=== PATIENT | female | born 1945 | race Caucasian/White ===

== ENCOUNTER 2016-10-18 10:53 | Inpatient (IN) ==
[2016-10-18] MEDS ORDERED: 0.9 % SODIUM CHLORIDE 1,000 ML IV ONE (11:36)
[2016-10-18 12:07] LABS: Mean Cell Volume 88.2 fL (80.0-100.0); Mean Corpuscular HGB Conc 33.7 g/dL (31.0-36.0); Mean Corpuscular Hemoglobin 29.7 pg (26.0-34.0); Platelet Count 211 K/mcL (140-440); RBC 4.21 M/mcL (4.00-5.20); Red Cell Distribution Width 14.3 % (11.5-14.5)
--- NOTE | 2016-10-18 12:11 | Emergency Department Note ---
Female Urogenital HPI - General Chief complaint: Fever Stated complaint: fever, constipation Time Seen by Provider: 10/18/16 11:15 Source: other (senior care transport brings in note) Mode of arrival: wheelchair Limitations: altered mental status (dementia) - History of Present Illness HPI Narrative: 71-year-old female presents to the ED with a history of fever, weakness, decreased appetite, constipation. According to report she has not had a documented fever that we can see. Apparently her weakness has gotten better today. She states she has pain with urination. Apparently she had a bowel movement yesterday as well. She has chronic constipation. She takes Dulcolax and MiraLAX for this. She has dementia and is a poor historian. She has not vomited. She has eaten some today. She has not had diarrhea. - Related Data Home Medications Medication Instructions Recorded Confirmed Docusate Sodium [Colace] 100 mg PO DAILY 10/18/16 10/18/16 Lisinopril/Hctz 10/12.5MG 1 tab PO DAILY 10/18/16 10/18/16 [Zestoretic 10/12.5MG] Polyethylene Glycol 3350 [Miralax] 17 gm PO DAILY 10/18/16 10/18/16 Sertraline [Zoloft] 150 mg PO DAILY 10/18/16 10/18/16 risperiDONE [Risperdal M-Tab] 3 mg PO HS 10/18/16 10/18/16 risperiDONE [Risperidone] 0.5 mg PO TID 10/18/16 10/18/16 Allergies Allergy/AdvReac Type Severity Reaction Status Date / Time iodine Allergy Unknown Verified 10/18/16 11:00 Penicillins Allergy Unknown Verified 10/18/16 11:00 Review of Systems All systems ED: reviewed and negative except as stated. 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 Absent: conjunctival injection - Neck Neck exam: Present: normal inspection, full ROM - Chest Chest inspection: Present: normal inspection, symmetric chest wall rise - Respiratory Respiratory exam: Present: normal lung sounds bilaterally - Cardiovascular Cardiovascular exam: Present: regular rate, normal heart sounds - Abdominal Exam Abdominal exam: Present: soft, tenderness, normal bowel sounds. Absent: guarding, rebound, rigidity Abdominal tenderness: Present: LLQ, suprapubic, mild - Extremities Exam Extremities exam: Present: normal inspection, full ROM, other (pain in groin with flexion of left hip) - Neurological Exam Neurological exam: Present: alert, CN II-XII intact - Psychiatric Psychiatric exam: Present: normal affect, normal mood - Skin Skin exam: Present: warm, dry, intact Course Vital Signs Temperature 98.2 F 10/18/16 10:54 Pulse Rate 96 H 10/18/16 10:54 Respiratory Rate 16 10/18/16 10:54 Blood Pressure 99/59 10/18/16 10:54 Pulse Oximetry (%) 97 10/18/16 10:54 Temperature 99.8 F H 10/18/16 15:11 Pulse Rate 98 H 10/18/16 14:18 Respiratory Rate 20 10/18/16 14:18 Blood Pressure 101/51 10/18/16 15:11 Pulse Oximetry (%) 94 10/18/16 15:11 Urogenital-Female - Lab Data Lab results reviewed: Yes I reviewed the patient's lab results. Result diagrams: 10/18/16 11:45 10/18/16 11:45 Lab Results 10/18/16 10/18/16 10/18/16 Range/Units 11:45 11:45 11:45 WBC 24.5 H (4.5-11.0) K/mcL RBC 4.21 (4.00-5.20) M/mcL Hgb 12.5 (12.0-15.0) g/dL Hct 37.1 (36.0-48.0) % MCV 88.2 (80.0-100.0) fL MCH 29.7 (26.0-34.0) pg MCHC 33.7 (31.0-36.0) g/dL RDW 14.3 (11.5-14.5) % Plt Count 211 (140-440) K/mcL MPV 8.2 (7.4-10.4) fL Total Counted 100 Seg Neutrophils % 96 H (38-78) % Band Neutrophils % Not Reportable Lymphocytes % 1 L (15-49) % Monocytes % (Manual) 3 (1-12) % Platelet Estimate Normal (NORMAL) RBC Morphology Normal (NORMAL) VBG Lactic Acid 1.5 (0.5-2.2) mmol/L Sodium 131 L (133-145) mmol/L Potassium 3.9 (3.3-5.1) mmol/L Chloride 91 L (96-108) mmol/L Carbon Dioxide 24 (22-30) mmol/L Anion Gap 16.0 (8-16) BUN 24 H (8-23) mg/dl Creatinine 1.2 H (0.6-1.1) mg/dl GFR Calculation 45 Glucose 118 H (70-105) mg/dL Calcium 9.4 (8.6-10.4) mg/dl Total Bilirubin 0.9 (0.0-1.0) mg/dL AST 65 H (0-37) U/l ALT 81 H (0-40) U/l Alkaline Phosphatase 84 (39-117) U/L Total Protein 7.4 (5.9-8.4) gm/dL Albumin 3.8 (3.2-5.2) gm/dL Globulin 3.6 (2.2-3.7) gm/dL Albumin/Globulin Ratio 1.1 (1.0-2.3) Urine Color Urine Appearance Urine pH (5.0-9.0) Ur Specific Mascot (1.000-1.035) Urine Protein (NEG) mg/dL Urine Glucose (UA) (NEG) mg/dL Urine Ketones (NEG) mg/dL Urine Occult Blood (<0.03) mg/dL Urine Nitrate (NEG) Urine Bilirubin (NEG) mg/dL Urine Urobilinogen (NEG) mg/dL Ur Leukocyte Esterase (NEG) /uL Urine RBC (0-1) /hpf Urine WBC (0-4) /hpf Ur Squamous Epith Cells (0-4) /hpf Urine Bacteria (0) /hpf Urine Mucus (0) /hpf Ur Culture Indicated? 10/18/16 Range/Units 12:07 WBC (4.5-11.0) K/mcL RBC (4.00-5.20) M/mcL Hgb (12.0-15.0) g/dL Hct (36.0-48.0) % MCV (80.0-100.0) fL MCH (26.0-34.0) pg MCHC (31.0-36.0) g/dL RDW (11.5-14.5) % Plt Count (140-440) K/mcL MPV (7.4-10.4) fL Total Counted Seg Neutrophils % (38-78) % Band Neutrophils % Lymphocytes % (15-49) % Monocytes % (Manual) (1-12) % Platelet Estimate (NORMAL) RBC Morphology (NORMAL) VBG Lactic Acid (0.5-2.2) mmol/L Sodium (133-145) mmol/L Potassium (3.3-5.1) mmol/L Chloride (96-108) mmol/L Carbon Dioxide (22-30) mmol/L Anion Gap (8-16) BUN (8-23) mg/dl Creatinine (0.6-1.1) mg/dl GFR Calculation Glucose (70-105) mg/dL Calcium (8.6-10.4) mg/dl Total Bilirubin (0.0-1.0) mg/dL AST (0-37) U/l ALT (0-40) U/l Alkaline Phosphatase (39-117) U/L Total Protein (5.9-8.4) gm/dL Albumin (3.2-5.2) gm/dL Globulin (2.2-3.7) gm/dL Albumin/Globulin Ratio (1.0-2.3) Urine Color Yellow Urine Appearance Hazy Urine pH 5.0 (5.0-9.0) Ur Specific Mascot 1.018 (1.000-1.035) Urine Protein 30 A (NEG) mg/dL Urine Glucose (UA) Negative (NEG) mg/dL Urine Ketones Neg (NEG) mg/dL Urine Occult Blood 0.2 A (<0.03) mg/dL Urine Nitrate Pos A (NEG) Urine Bilirubin Neg (NEG) mg/dL Urine Urobilinogen Neg (NEG) mg/dL Ur Leukocyte Esterase 250 A (NEG) /uL Urine RBC 1 (0-1) /hpf Urine WBC 40 H (0-4) /hpf Ur Squamous Epith Cells 0 (0-4) /hpf Urine Bacteria Mod A (0) /hpf Urine Mucus Few (0) /hpf Ur Culture Indicated? Yes Disposition Pt seen by HEAVY DUTY CUSTODIAN/PA only: No Clinical Impression: UTI (urinary tract infection) Disposition: Xfer As Inpt ([facility]) Condition: Fair
[2016-10-18 12:25] LABS: Lymphocytes % 1 % (15-49); Monocytes % (Manual) 3 % (1-12); Platelet Estimate NORMAL (NORMAL); RBC Morphology NORMAL (NORMAL); Segmented Neutrophils % 96 % (38-78)
[2016-10-18 12:27] LABS: ALT/SGPT 81 U/l (0-40); Albumin 3.8 gm/dL (3.2-5.2); Albumin/Globulin Ratio 1.1 (1.0-2.3); Alkaline Phosphatase 84 U/L (39-117); Blood Urea Nitrogen 24 mg/dl (8-23)
[2016-10-18 12:38] LABS: Appearance,Urine HAZY; Bacteria,Urine MOD /hpf (0); Bilirubin,Urine NEG (NEG); Color,Urine YELLOW; Glucose,Urine (UA) NEGATIVE (NEG); Leukocyte Esterase,Urine 250 /uL (NEG); Mucus,Urine FEW /hpf (0); Nitrate,Urine POS (NEG); Protein,Urine 30 mg/dL (NEG); Specific Gravity,Urine 1.018 (1.000-1.035); Urine Blood 0.2 mg/dL (<0.03); Urine RBC 1 /hpf (0-1); Urine Squamous Epithelial Cell 0 /hpf (0-4); Urine WBC 40 /hpf (0-4); Urobilinogen,Urine NEG (NEG)
[2016-10-18] MEDS ORDERED: cefTRIAXone 1 GM in DEXTROSE 5% IN WATER 50 ML IV ONE (12:57)
[2016-10-18] MEDS ORDERED: ACETAMINOPHEN 325 MG TABLET PO ONE (13:25)
--- NOTE | 2016-10-18 13:43 | XRay Report ---
CLINICAL INFORMATION: Elevated white blood cell count COMPARISON: None. FINDINGS: Heart size, mediastinum and pulmonary vessels are normal. There may be a vague infiltrate developing in the right midlung. Small bilateral pleural effusions noted IMPRESSION: Possible vague infiltrate involving the right midlung. Small bilateral pleural effusions. If there is suspicion for pneumonia clinically, suggest short-term radiographic follow-up: 1-2 days. Interpreted and Authenticated by: Praful Hanna 10/18/16
[2016-10-18] MEDS ORDERED: MAGNESIUM HYDROXIDE 30 ML ORAL.SUSP PO PRN (14:46)
[2016-10-18] MEDS ORDERED: ACETAMINOPHEN 325 MG TABLET PO PRN (14:46)
[2016-10-18] MEDS ORDERED: DOCUSATE SODIUM 100 MG CAPSULE PO PRN (14:46)
[2016-10-18] MEDS ORDERED: ONDANSETRON 4 MG/2 ML VIAL IV PRN (14:46)
[2016-10-18] MEDS ORDERED: CALCIUM CARBONATE 500 MG TAB.CHEW CHEWED PRN (14:46)
[2016-10-18] MEDS: NACL 0.9% W/KCL 20MEQ 1,000 ML IV SCH ×2 (15:09→23:10)
--- NOTE | 2016-10-18 18:34 | Internal Med History&Physical ---
Medical - H&P: [facility] Patient information: Note initiated : 10/18/16 at 6:26 pm Patient: Nicole Hillman 71 y/o F admitted on 10/18/16 for fever, UTI. History of present illness: Ms. Hillman is a 71 year old female who lives at the [facility]. She was sent over today for fever, weakness, decreased oral intake. ER evaluation found her to be hypotensive, tachycardic, febrile with leukocytosis and mild renal insufficiency. Urinalysis also was strongly suggestive of UTI. The patient has dementia, and unfortunately is not accompanied by anyone. She really cannot recall while she is here. She does not recall having a fever. She denies any chills, but does complain of being cold. She denies headaches or dizziness, new eye or ear symptoms, sore throat or cough, chest pain or palpitations, shortness of breath, abdominal pain, nausea or vomiting, diarrhea. She thinks she may have had dysuria, but is unsure. At one point she asked "what happens if a mouse gets in my lungs and I have to live with it?" Past medical history: Schizoaffective disorder Bipolar mood disorder Dementia with psychosis, agitation Constipation Urinary tract infection. Medications: Colace 100 mg daily Lisinopril/HCTZ 1012 0.51 daily MiraLAX 17 g daily Risperdal 0.5 mg 3 times daily Risperdal 3 mg nightly Zoloft 150 mg daily Allergies: Iodine, penicillin Social history: Patient is currently living at [facility]. She does not recall having any family in the area. She was previously living alone, but struggling with finances, and reportedly not eating very well. The patient denies tobacco, alcohol, drug use, but history is unreliable. She reportedly has 1 son who she does not have contact with. Family history: Is unknown, and the patient does not know. Medical - H&P: Meds Home Medications Medication Instructions Recorded Confirmed Type Docusate Sodium [Colace] 100 mg PO DAILY 10/18/16 10/18/16 History Lisinopril/Hctz 10/12.5MG 1 tab PO DAILY 10/18/16 10/18/16 History [Zestoretic 10/12.5MG] Polyethylene Glycol 3350 [Miralax] 17 gm PO DAILY 10/18/16 10/18/16 History Sertraline [Zoloft] 150 mg PO DAILY 10/18/16 10/18/16 History risperiDONE [Risperdal M-Tab] 3 mg PO HS 10/18/16 10/18/16 History risperiDONE [Risperidone] 0.5 mg PO TID 10/18/16 10/18/16 History Allergies Allergy/AdvReac Type Severity Reaction Status Date / Time iodine Allergy Unknown PT DOES Verified 10/18/16 16:18 NOT RECALL RXN Penicillins Allergy Unknown PT DOES Verified 10/18/16 16:18 NOT RECALL RXN Medical - H&P: Exam - Constitutional Vitals: Temp Pulse Resp BP Pulse Ox 99.8 F H 98 H 20 101/51 94 10/18/16 15:11 10/18/16 14:18 10/18/16 14:18 10/18/16 15:11 10/18/16 15:11 On exam, she is not in any acute distress, but is not oriented. She does complain of feeling a little cold. Temperature ranging from 99.8-102.8, heart rate just from 90-98. Blood pressure ranges from 99/59-120 9/57. O2 saturation is 94% on room air. Head is normocephalic, atraumatic. Ears: She has bilateral cerumen occluding view of TMs. Eyes: PERRLA, EOMI, anicteric. Pharynx: Mucosa appears quite dry. Teeth are in only fair condition. She appears to have a cavity of a right upper molar. Posterior pharynx appears clear. Neck: Is supple, without obvious lymphadenopathy, JVD, thyromegaly, bruits. Cardiac exam: Shows regular rate and rhythm, with normal S1 and S2, without murmurs, rubs, gallops. Lungs: Clear to auscultation, without rales, rhonchi, wheezes. Abdomen: Soft and nontender, without obvious masses. Bowel sounds are normoactive. There is no guarding or rebound. Extremities: Show no cyanosis, clubbing, edema. Skin exam: Does not show any worrisome lesions. Neurologic exam: Patient is awake and alert, and fairly calm, but appears to have disordered thinking. She frequently says things during the interview that are fairly nonsensical. She does not know where she is now nor does she know where she lives. Motor exam is grossly nonfocal. Medical - H&P: Reslt - Labs CBC & Chem 7: 10/18/16 11:45 10/18/16 11:45 Labs: CBC differential shows 96% neutrophils. Lactic acid is normal at 1.5 AST is elevated at 65, ALT 81 Urinalysis shows 30 mg of protein, positive nitrates, 250 leukocyte esterase, 40 white blood cells, moderate bacteria Chest x-ray shows possible vague infiltrate involving the right midlung, with small bilateral pleural effusions. Medical - H&P: A/P (1) SIRS (systemic inflammatory response syndrome) Current visit: Yes Status: Acute (2) Sepsis associated hypotension Current visit: Yes Status: Acute (3) Schizoaffective disorder Current visit: Yes Status: Chronic (4) Dementia Current visit: No Status: Chronic - Narrative A/P Narrative: #1. Infectious disease. Patient presents with signs of early sepsis, with hypotension, fever, tachycardia, leukocytosis, and evidence of urinary tract infection and possible depressed mental status from baseline. Patient admitted for further observation and treatment. -IV fluids for rehydration. -Rocephin for empiric antibiotic coverage for UTI. Urine and blood cultures 2. Psychiatric. Patient has history of dementia, schizoaffective disorder, bipolar disorder. She appears to have severe memory loss. Continue Risperdal and Zoloft for now. 3. History of constipation. Continue Colace and MiraLAX as needed. 4. DVT prophylaxis: Subcu heparin. 5. CODE STATUS: It does not appear that the half-way sent as a pulsed form. Patient will remain full code for now. I do not see contacts noted in her chart. 6. Presumed hypertension, given her blood pressure meds. These will be held, while hypotension is monitored. Approximately 50 minutes was spent today, reviewing the patient's case with the ER MD, reviewing test results, reviewing records obtained from [facility], interviewing and examining the patient, and writing orders. Medical - H&P: Qual - Stroke Symptom Onset Unknown: No - VTE Deep Vein Thrombosis/Pulmonary Embolism Present on Admission: No
[2016-10-18] MEDS: risperiDONE 1 MG TABLET PO SCH (20:35)
[2016-10-18] MEDS: HEPARIN 5,000 UNIT/ML VIAL SQ SCH (20:35)
[2016-10-18] MEDS: 0.9 % SODIUM CHLORIDE 10 ML SYRINGE IV SCH (20:36)
[2016-10-19] MEDS: 0.9 % SODIUM CHLORIDE 10 ML SYRINGE IV SCH ×3 (05:55→22:49)
[2016-10-19 06:04] LABS: Basophils # (Auto) 0 K/mcL (0.0-0.3); Basophils % (Auto) 0 % (0.0-2.0); Eosinophils # (Auto) 0 K/mcL (0.0-0.7); Eosinophils % (Auto) 0 % (0.0-7.0); Granulocytes % (Auto) 92.2 % (38.0-78.0); Lymphocytes # (Auto) 0.4 K/mcL (1.5-4.8); Lymphocytes % (Auto) 2.7 % (15.5-49.0); Mean Cell Volume 88.7 fL (80.0-100.0); Mean Corpuscular HGB Conc 33.7 g/dL (31.0-36.0); Mean Corpuscular Hemoglobin 29.9 pg (26.0-34.0); Monocytes # (Auto) 0.7 K/mcL (0.1-0.9); Monocytes % (Auto) 5.1 % (1.0-12.0); Platelet Count 164 K/mcL (140-440); RBC 3.72 M/mcL (4.00-5.20); Red Cell Distribution Width 14.4 % (11.5-14.5)
[2016-10-19 06:34] LABS: ALT/SGPT 58 U/l (0-40); Albumin 3.2 gm/dL (3.2-5.2); Albumin/Globulin Ratio 1.1 (1.0-2.3); Alkaline Phosphatase 86 U/L (39-117); Bilirubin,Direct < 0.2 mg/dL (0.0-0.3); Blood Urea Nitrogen 17 mg/dl (8-23); Gamma Glutamyl Transpeptidase 62 U/L (5-36); Magnesium 1.8 mg/dL (1.6-2.5); Uric Acid 2.9 mg/dL (2.5-8.0)
[2016-10-19] MEDS: NACL 0.9% W/KCL 20MEQ 1,000 ML IV SCH ×3 (06:57→22:58)
--- NOTE | 2016-10-19 08:15 | XRay Report ---
CLINICAL INFORMATION: Follow-up possible right midlung infiltrate COMPARISON: 10/18/2016 FINDINGS: Heart size, mediastinum and pulmonary vessels are normal. There is no infiltrate in right midlung on today's study - lungs are clear. No effusions. Malunified old fracture of the mid right humerus is incompletely imaged on the film. Chronic appearing bilateral rotator cuff impingement/tear noted IMPRESSION: No evidence of right midlung infiltrate. Other chronic musculoskeletal findings - as described Interpreted and Authenticated by: Praful Hanna 10/19/16
[2016-10-19] MEDS: HEPARIN 5,000 UNIT/ML VIAL SQ SCH ×2 (08:46→20:44)
[2016-10-19] MEDS: SERTRALINE 50 MG TABLET PO SCH (08:46)
[2016-10-19] MEDS: risperiDONE 0.25 MG TABLET PO SCH ×3 (08:46→17:20)
[2016-10-19] MEDS: DOCUSATE SODIUM 100 MG CAPSULE PO SCH (08:47)
[2016-10-19] MEDS: POLYETHYLENE GLYCOL 3350 17 GM PACKET PO SCH (08:47)
[2016-10-19] MEDS: cefTRIAXone 1 GM in DEXTROSE 5% IN WATER 50 ML IV SCH (10:12)
--- NOTE | 2016-10-19 11:13 | Internal Med Progress Note ---
Medical - PN: Subj Patient information: Note initiated : 10/19/16 at 11:12 am Patient: Nicole Hillman 71 y/o F admitted on 10/18/16 for fever, constipation. Interval history: October 18, 2016: History of present illness: Ms. Hillman is a 71 year old female who lives at the [facility]. She was sent over today for fever, weakness, decreased oral intake. ER evaluation found her to be hypotensive, tachycardic, febrile with leukocytosis and mild renal insufficiency. Urinalysis also was strongly suggestive of UTI. The patient has dementia, and unfortunately is not accompanied by anyone. She really cannot recall while she is here. She does not recall having a fever. She denies any chills, but does complain of being cold. She denies headaches or dizziness, new eye or ear symptoms, sore throat or cough, chest pain or palpitations, shortness of breath, abdominal pain, nausea or vomiting, diarrhea. She thinks she may have had dysuria, but is unsure. At one point she asked "what happens if a mouse gets in my lungs and I have to live with it?" Next October 19: Today, the patient notes she just does not seem to have her normal appetite back. She otherwise does not offer any particular complaints this morning, but this afternoon does say that she thinks something is going on with her leg. She is unable to specify what exactly. Her son is here this afternoon, and just wants to know what our assessment is. We discussed that she came in with altered mental status, apparently due to a urinary tract infection and dehydration. He notes that she is not her normal level of alertness, and she initially did not recognize him today. He does say though that she has severe memory loss at times, and other times can carry on intelligent conversation. He really does not have any other details about what symptoms she might of had yesterday. He notes there is no formal living will or power of civil rights attorney. He says he has been working on that, but it has not been completed yet. - Constitutional Vitals: Vital Signs Temp Pulse Resp BP Pulse Ox 100.1 F H 83 16 149/80 94 10/19/16 06:18 10/19/16 03:25 10/19/16 06:18 10/19/16 06:18 10/19/16 07:12 Period Temp Pulse Resp BP Sys/Fisher Pulse Ox Last 24 Hr 97.4 F-100.1 F 80-87 16-20 101-149/51-84 94-98 Intake and Output 10/18/16 10/19/16 10/19/16 21:59 05:59 13:59 Intake Total 1100 / 1100 1813 / 1813 Output Total 250 / 250 850 / 850 Balance -250 / 750 250 / 250 1813 / 1813 Weight 111 lb Intake & Output: Intake & Output 10/18/16 10/19/16 10/19/16 21:59 05:59 13:59 Intake Total 1100 / 1100 1813 / 1813 Output Total 250 / 250 850 / 850 Balance -250 / 750 250 / 250 1813 / 1813 Weight 111 lb Intake: IV 1000 / 1000 973 / 973 NaCl 0.9% W/KCl 20Meq 1000 / 1000 973 / 973 1000ML 1,000 ml @ 125 mls /hr IV .Q8H [facility] Rx#: [id number] Oral 100 / 100 840 / 840 Output: Urine Catheter Amount 250 / 250 850 / 850 Other: Meal Breakfast Percent of Meal Consumed 0% # Bowel Movements 1 T-max this morning is 100.1. O2 saturation 95% on room air. On exam, the patient is much more awake and alert today. She does not really speak in complete sentences, and does not usually make a great deal of sense. She denies any specific pain. She is in no acute distress. Neck is supple without obvious lymphadenopathy or JVD. Cardiac exam shows regular rate and rhythm. Lungs are clear to auscultation. Abdomen is soft and nontender. Rashid catheter is draining fairly clear yellow urine. Extremities show no edema. Neurologic: The patient is clearly forgetful, and her presentation is certainly consistent with dementia. Motor exam is grossly nonfocal. Medical - PN: Obj Da - Labs CBC & Chem 7: 10/19/16 04:30 10/19/16 04:30 Labs: Abnormal Lab Results 10/19/16 10/19/16 04:30 04:30 WBC 13.9 H RBC 3.72 L Hgb 11.1 L Hct 33.0 L Gran % 92.2 H Lymph % (Auto) 2.7 L Gran # 12.8 H Lymph # (Auto) 0.4 L Glucose 111 H Phosphorus 2.5 L GGT 62 H AST 40 H ALT 58 H October 19: Cultures are negative so far. Urine culture is growing greater than 100,000 gram-negative bacilli, ID to follow Chest x-ray: Shows clear lungs. There is a mal-unified fracture of the right mid humerus and chronic appearing bilateral rotator cuff tears October 18: CBC: White blood cell count 24,500, hemoglobin 12, hematocrit 37, differential shows 96% neutrophils. Lactic acid is normal at 1.5 AST is elevated at 65, ALT 81 Urinalysis shows 30 mg of protein, positive nitrates, 250 leukocyte esterase, 40 white blood cells, moderate bacteria Chest x-ray shows possible vague infiltrate involving the right midlung, with small bilateral pleural effusions. Meds: Medications Acetaminophen (Tylenol) 650 mg PO Q6HP PRN PRN Reason: PAIN/FEVER > 101 Last Admin: 10/18/16 20:35 Dose: 650 mg Calcium Carbonate/Glycine (Tums) 1,000 mg CHEWED Q4HP PRN PRN Reason: Dyspepsia Docusate Sodium (Colace) 100 mg PO BID PRN PRN Reason: Constipation Last Admin: 10/18/16 20:35 Dose: 100 mg Docusate Sodium (Colace) 100 mg PO DAILY [facility] Last Admin: 10/19/16 08:47 Dose: 100 mg Heparin Sodium (Porcine) (Heparin) 5,000 unit SQ Q12 [facility] Last Admin: 10/19/16 08:46 Dose: 5,000 unit Ceftriaxone Sodium 1 gm/ (Dextrose) 50 mls @ 100 mls/hr IV Q24H [facility] Last Admin: 10/19/16 10:12 Dose: 100 mls/hr Potassium Chloride/Sodium Chloride (Nacl 0.9% W/Kcl 20meq 1000ml) 1,000 mls @ 125 mls/hr IV .Q8H [facility] Last Admin: 10/19/16 06:57 Dose: 125 mls/hr Magnesium Hydroxide (Milk Of Magnesia) 30 ml PO DAILYP PRN PRN Reason: Constipation Ondansetron HCl (Zofran) 4 mg IV Q6HP PRN PRN Reason: Nausea And Vomiting Polyethylene Glycol (Miralax) 17 gm PO DAILY [facility] Last Admin: 10/19/16 08:47 Dose: 17 gm Risperidone (Risperdal) 3 mg PO HS [facility] Last Admin: 10/18/16 20:35 Dose: 3 mg Risperidone (Risperdal) 0.5 mg PO TID@0900,1300,1700 [facility] Last Admin: 10/19/16 08:46 Dose: 0.5 mg Sertraline HCl (Zoloft) 150 mg PO DAILY [facility] Last Admin: 10/19/16 08:46 Dose: 150 mg Sodium Chloride (Saline Flush) 10 ml IV Q8 [facility] Last Admin: 10/19/16 05:55 Dose: Not Given Medical - PN: A/P - Time Spent With Patient Total time spent is greater than 50% in coordination of care (as documented) at patient's floor/unit and/or counseling patient: 25 - 35 minutes (1) SIRS (systemic inflammatory response syndrome) Status: Acute Current Visit: Yes (2) Sepsis associated hypotension Status: Acute Current Visit: Yes (3) Schizoaffective disorder Status: Chronic Current Visit: Yes (4) Dementia Status: Chronic Current Visit: No - Narrative A/P Narrative: #1. Infectious disease. Patient presents with signs of early sepsis, with hypotension, fever, tachycardia, leukocytosis, and evidence of urinary tract infection and possible depressed mental status from baseline. -The patient looks perkier today, and vital signs have improved. Leukocytosis has improved. She continues on Rocephin, and urine culture is growing greater than 100,000 gram-negative bacilli, so this should be covered by the Rocephin. Continue IV fluids and IV antibiotics. Await culture results. 2. Psychiatric. Patient has history of dementia, schizoaffective disorder, bipolar disorder. She appears to have severe memory loss. Continue Risperdal and Zoloft for now. 3. History of constipation. Continue Colace and MiraLAX as needed. 4. DVT prophylaxis: Subcu heparin. 5. CODE STATUS: Her son arrived today. Unfortunately, he says there is no living will. He does not have her POA yet either, although he says he has been working on this. I think therefore we are obligated to leave her as a full code. 6. Presumed hypertension, given her blood pressure meds. Blood pressure is closer to normal today. Blood pressure meds are on hold until blood pressure runs high again. These will be held, while hypotension is monitored. Medical - PN: Qual - Stroke Symptom Onset Unknown: No - VTE Deep Vein Thrombosis/Pulmonary Embolism Present on Admission: No
[2016-10-19] MEDS: risperiDONE 1 MG TABLET PO SCH (20:44)
[2016-10-20 05:53] LABS: Basophils # (Auto) 0 K/mcL (0.0-0.3); Basophils % (Auto) 0.1 % (0.0-2.0); Eosinophils # (Auto) 0 K/mcL (0.0-0.7); Eosinophils % (Auto) 0.4 % (0.0-7.0); Granulocytes % (Auto) 86.4 % (38.0-78.0); Lymphocytes # (Auto) 0.5 K/mcL (1.5-4.8); Lymphocytes % (Auto) 6.6 % (15.5-49.0); Mean Cell Volume 88.3 fL (80.0-100.0); Mean Corpuscular HGB Conc 34.6 g/dL (31.0-36.0); Mean Corpuscular Hemoglobin 30.5 pg (26.0-34.0); Monocytes # (Auto) 0.5 K/mcL (0.1-0.9); Monocytes % (Auto) 6.5 % (1.0-12.0); Platelet Count 170 K/mcL (140-440); RBC 3.33 M/mcL (4.00-5.20); Red Cell Distribution Width 14.2 % (11.5-14.5)
[2016-10-20] MEDS: 0.9 % SODIUM CHLORIDE 10 ML SYRINGE IV SCH (06:13)
[2016-10-20 06:18] LABS: ALT/SGPT 65 U/l (0-40); Albumin 2.6 gm/dL (3.2-5.2); Albumin/Globulin Ratio 0.9 (1.0-2.3); Alkaline Phosphatase 83 U/L (39-117); Bilirubin,Direct < 0.2 mg/dL (0.0-0.3); Blood Urea Nitrogen 11 mg/dl (8-23); Gamma Glutamyl Transpeptidase 98 U/L (5-36); Magnesium 1.6 mg/dL (1.6-2.5); Uric Acid 2.3 mg/dL (2.5-8.0)
[2016-10-20] MEDS: NACL 0.9% W/KCL 20MEQ 1,000 ML IV SCH (07:00)
[2016-10-20] MEDS: risperiDONE 0.25 MG TABLET PO SCH ×2 (09:47→12:35)
[2016-10-20] MEDS: SERTRALINE 50 MG TABLET PO SCH (09:47)
[2016-10-20] MEDS: cefTRIAXone 1 GM in DEXTROSE 5% IN WATER 50 ML IV SCH (09:48)
[2016-10-20] MEDS: HEPARIN 5,000 UNIT/ML VIAL SQ SCH (09:52)
[2016-10-20] MEDS: POLYETHYLENE GLYCOL 3350 17 GM PACKET PO SCH (10:47)
[2016-10-20] MEDS: DOCUSATE SODIUM 100 MG CAPSULE PO SCH (10:47)
--- NOTE | 2016-10-20 11:02 | Discharge Summary ---
Medical - DS: Prov Patient information: Note initiated : 10/20/16 at 11:02 am Patient: Nicole Hillman 71 y/o F admitted on 10/18/16 for Fever, Constipation/ UTI, Sepsis. Date of admission: 10/18/16 14:34 Discharge date: 10/20/16 Primary care physician: Elizabeth Riggins, nurse practitioner, Admitting clinician: Valeria Melvin Attending physician on discharge: Valeria Melvin Medical - DS: Meds - Discharge Medications Prescriptions: Cephalexin [Keflex] 250 mg PO QID #20 ml Nystatin 500,000 units PO QIDP #20 oral.susp Active and Home Medications: Discharge medications: *Keflex 250 mg 4 times daily, 5 more days, for UTI. *Nystatin swish and spit, 5 mL 4 times daily, for her mouth and tongue pain,? Thrush Colace 100 mg p.o. daily MiraLAX 17 g daily Zoloft 150 mg daily Risperdal 0.5 mg 3 times daily, +3 mg nightly *Tums 1-2 tabs every 6 hours as needed indigestion, and for extra calcium Please drink lots of fluids, at least 6-8 glasses per day *Please hold lisinopril/HCTZ 10/12.5, for a few more days, until blood pressure rebounds. You can probably resume on Monday. Previous home Medications: Docusate Sodium [Colace] 100 mg PO DAILY 10/18/16 [History Confirmed 10/18/16 Last Taken 10/18/16] Lisinopril/Hctz 10/12.5MG [Zestoretic 10/12.5MG] 1 tab PO DAILY 10/18/16 [ History Confirmed 10/18/16 Last Taken 10/18/16] Polyethylene Glycol 3350 [Miralax] 17 gm PO DAILY 10/18/16 [History Confirmed Last Taken 10/18/16 17 gm] Sertraline [Zoloft] 150 mg PO DAILY 10/18/16 [History Confirmed 10/18/16 Last Taken 10/18/16] risperiDONE [Risperdal M-Tab] 3 mg PO HS 10/18/16 [History Confirmed 10/18/16 Last Taken 10/17/16] risperiDONE [Risperidone] 0.5 mg PO TID 10/18/16 [History Confirmed 10/18/16 Last Taken 10/18/16] Medical - DS: Hosp Hospital course: Mrs. Hillman is a 71 year old F October 18, 2016: History of present illness: Ms. Hillman is a 71 year old female who lives at the [facility]. She was sent over today for fever, weakness, decreased oral intake. ER evaluation found her to be hypotensive, tachycardic, febrile with leukocytosis and mild renal insufficiency. Urinalysis also was strongly suggestive of UTI. The patient has dementia, and unfortunately is not accompanied by anyone. She really cannot recall while she is here. She does not recall having a fever. She denies any chills, but does complain of being cold. She denies headaches or dizziness, new eye or ear symptoms, sore throat or cough, chest pain or palpitations, shortness of breath, abdominal pain, nausea or vomiting, diarrhea. She thinks she may have had dysuria, but is unsure. At one point she asked "what happens if a mouse gets in my lungs and I have to live with it?" Next October 19: Today, the patient notes she just does not seem to have her normal appetite back. She otherwise does not offer any particular complaints this morning, but this afternoon does say that she thinks something is going on with her leg. She is unable to specify what exactly. Her son is here this afternoon, and just wants to know what our assessment is. We discussed that she came in with altered mental status, apparently due to a urinary tract infection and dehydration. He notes that she is not her normal level of alertness, and she initially did not recognize him today. He does say though that she has severe memory loss at times, and other times can carry on intelligent conversation. He really does not have any other details about what symptoms she might of had yesterday. He notes there is no formal living will or power of special investigator. He says he has been working on that, but it has not been completed yet. October 20: Hospital course: -This patient was admitted with fever, weakness, SIRS syndrome, all likely due to urinary tract infection. She has made remarkable improvement over the last 48 hours, and appears ready for discharge. She has been up and walked more than 100 feet with physical therapy. Her appetite is not quite back to normal, but is definitely improving. She has been treated with IV Rocephin for the last 2 days, so we will switch her to oral Keflex. Urine culture grew pansensitive E. coli. -She has been complaining of mouth and tongue pain. Her tongue is a little bit white coated, so she may have early thrush. She also has a bad right upper molar cavity, which may be cutting into her tongue. -Blood pressures have been on the low side, so lisinopril with HCTZ has been held. -She is alert, but still cannot give a reliable history. She continues to talk about people and places that are not here. Blood pressure 108/71, O2 sat 95% on room air, heart rate 81, temperature 98.8 On exam, the patient is much more awake and alert today. She continues to report mild tongue pain. She otherwise does not really able to give an accurate history. She is in no acute distress. Pharynx: Tongue has a little bit of white coating. She has a very jagged cavity and a right upper molar. I do not see signs of an abscess. Neck is supple without obvious lymphadenopathy or JVD. Cardiac exam shows regular rate and rhythm. Lungs are clear to auscultation. Abdomen is soft and nontender. Rashid catheter is draining fairly clear yellow urine. Extremities show no edema. Neurologic: The patient is clearly forgetful, and her presentation is certainly consistent with dementia. Motor exam is grossly nonfocal. Assessment and plan: #1. Infectious disease. Patient presents with signs of early sepsis, with hypotension, fever, tachycardia, leukocytosis, and evidence of urinary tract infection and possible depressed mental status from baseline. -The patient looks much improved today, and vital signs have improved. Leukocytosis has improved. She appears stable for discharge today. Discontinue IV Rocephin, start oral Keflex. Urine culture grew pansensitive E. coli. Medora-continue to push oral fluids. 2. Psychiatric. Patient has history of dementia, schizoaffective disorder, bipolar disorder. She appears to have severe memory loss. Continue Risperdal and Zoloft for now. 3. History of constipation. Continue Colace and MiraLAX as needed. 4. DVT prophylaxis: Subcu heparin. 5. CODE STATUS: Her son arrived today. Unfortunately, he says there is no living will. He does not have her POA yet either, although he says he has been working on this. I think therefore we are obligated to leave her as a full code. 6. Presumed hypertension, given her blood pressure meds. Blood pressure is closer to normal today. Blood pressure meds are on hold until blood pressure runs high again. I would continue to hold blood pressure meds, until follow-up blood pressure check so show her running consistently greater than 140/90. Some consideration could be given to changing her lisinopril with HCTZ over to plain lisinopril. #7. Anemia. H&H have fallen a bit while here. This should be followed up with her primary care physician. 8. GI. LFTs have been a bit elevated. This should also be followed up with the primary care physician. Approximately 35 minutes was spent today, reviewing the patient's test results, interviewing and examining her, reviewing plan of care with our team as well as with nursing staff, and writing orders. Discharge diagnosis: Urinary tract infection with early sepsis. Thrush. Hypotension. Secondary discharge diagnosis: Anemia. Elevated LFTs. Dementia. hypertension. - Time Spent with Patient Total time spent providing and/or coordinating discharge services: Greater than 30 minutes Medical - DS: Exam - Constitutional Vitals: Vital Signs Temp Pulse Resp BP BP Pulse Ox 10/20/16 08:55 95 10/20/16 07:02 98.8 F 16 108/71 97 10/20/16 03:45 98.7 F 88 20 121/70 95 10/19/16 23:26 97.5 F 86 20 116/71 97 10/19/16 19:33 98.2 F 80 20 100/61 98 10/19/16 15:37 98.3 F 16 121/64 95 10/19/16 11:21 98.9 F 16 130/73 96 Intake and Output 10/19/16 10/20/16 10/20/16 21:59 05:59 13:59 Intake Total 1740 / 1740 1237 / 1237 1120 / 1120 Output Total 525 / 525 850 / 850 500 / 500 Balance 1215 / 1215 387 / 387 620 / 620 Intake: IV 1000 / 1000 967 / 967 1000 / 1000 NaCl 0.9% W/KCl 20Meq 1000 / 1000 967 / 967 1000 / 1000 1000ML 1,000 ml @ 125 mls /hr IV .Q8H [facility] Rx#: [id number] Oral 740 / 740 270 / 270 120 / 120 Output: Urine Catheter Amount 525 / 525 850 / 850 500 / 500 Other: Meal Dinner Breakfast Percent of Meal Consumed 25% 75% Feeding Ability Assist with Tray Set Up Needs Supervision # Bowel Movements 1 # of times incontinent of 1 Bowels Weight 111 lb Medical - DS: Data Labs on day of discharge: Labs from last 24 hours 10/20/16 10/20/16 04:43 04:43 WBC 8.0 RBC 3.33 L Hgb 10.2 L Hct 29.4 L MCV 88.3 MCH 30.5 MCHC 34.6 RDW 14.2 Plt Count 170 MPV 8.7 Gran % 86.4 H Lymph % (Auto) 6.6 L [place] % (Auto) 6.5 Eos % (Auto) 0.4 Baso % (Auto) 0.1 Gran # 6.9 Lymph # (Auto) 0.5 L [place] # (Auto) 0.5 Eos # (Auto) 0 Baso # (Auto) 0 Sodium 135 Potassium 4.3 Chloride 104 Carbon Dioxide 20 L Anion Gap 11.0 BUN 11 Creatinine 0.7 GFR Calculation 87 Glucose 90 Uric Acid 2.3 L Calcium 8.0 L Phosphorus 1.5 L Magnesium 1.6 Total Bilirubin 0.4 Direct Bilirubin < 0.2 GGT 98 H AST 49 H ALT 65 H Alkaline Phosphatase 83 Lactate Dehydrogenase 134 Total Protein 5.4 L Albumin 2.6 L Globulin 2.8 Albumin/Globulin Ratio 0.9 L Triglycerides 142 October 19: Cultures are negative so far. Urine culture is growing greater than 100,000 E. coli. Sensitive to all antibiotics tested. Chest x-ray: Shows clear lungs. There is a mal-unified fracture of the right mid humerus and chronic appearing bilateral rotator cuff tears October 18: CBC: White blood cell count 24,500, hemoglobin 12, hematocrit 37, differential shows 96% neutrophils. Lactic acid is normal at 1.5 AST is elevated at 65, ALT 81 Urinalysis shows 30 mg of protein, positive nitrates, 250 leukocyte esterase, 40 white blood cells, moderate bacteria Chest x-ray shows possible vague infiltrate involving the right midlung, with small bilateral pleural effusions. Medical - DS: A/P - Patient/Caregiver Discharge Instructions Activity: increase activity as tolerated Diet: Dysphagia Mech Alter (Dysphasia mechanical altered diet, level 2, with thin liquids, Ensure and live supplement 8 ounces twice a day) Additional Instructions: 1. For your mouth pain, we will start you on oral nystatin. Take 5 mL (1 teaspoon), 4 times a day, swish and spit, for 5-7 days. Also, you have a jagged right upper molar tooth. You should get a dentist appointment as this may be cutting your tongue. 2. Urinary tract infection. Please take Keflex, 250 mg, 4 times a day, until completed. Please drink lots of water to stay well-hydrated. 3. Hypertension. Your blood pressure has run low since admission, so lisinopril/HCTZ is on hold. Please continue to hold this until your blood pressure is rechecked, and found to be higher. Your doctor may want to change the lisinopril/HCTZ over to plain lisinopril. 4. Anemia. Your hemoglobin has run a bit low in the hospital. This should be checked again when you see your primary care physician, preferably in the next 1-2 weeks. #5. You are still a bit weaker than your baseline. He may want to pursue physical and occupational therapy after discharge. Prescriptions: Cephalexin [Keflex] 250 mg PO QID #20 ml Nystatin 500,000 units PO QIDP #20 oral.susp Other Amb Orders: Complete Blood Count Time Frame: 3 Days, Location: Determined By Patient Inpatient Panel Time Frame: 3 Days, Location: Determined By Patient - Problem Maintenance (1) SIRS (systemic inflammatory response syndrome) Status: Resolved (2) Sepsis associated hypotension Status: Suspected (3) Schizoaffective disorder Status: Chronic (4) Dementia Status: Chronic Qualifiers: Dementia type: unspecified type Dementia behavioral disturbance: with behavioral disturbance Qualified Code(s): F03.91 - Unspecified dementia with behavioral disturbance (5) Thrush, oral Status: Acute (6) Elevated LFTs Status: Acute - Follow up Plan Follow up with: Elizabeth Riggins [Primary Care Provider] - Disposition: [facility] Prognosis: Fair Rehab Potential: Fair Overall status at discharge: patient is progressing back to baseline Medical - DS: Qual - VTE Deep Vein Thrombosis/Pulmonary Embolism Present on Admission: No
[2016-10-20] MEDS ORDERED: NEUTRA PHOS 1 PACKET PO ONE (11:30)
[2016-10-20] MEDS ORDERED: PNEUMOCOCCAL 23-VAL P-SAC VAC 0.5 ML VIAL IM ONE (12:30)
== END 2016-10-20 13:30 | DRG 872 ==
LOC: ED 10:53 → MEDSUR 14:30
PROVIDERS: ADMIT Internal Medicine; ATTEND Internal Medicine

== ENCOUNTER 2016-12-08 21:17 | Inpatient (IN) ==
[2016-12-08] MEDS ORDERED: ACETAMINOPHEN 325 MG TABLET PO ONE (21:23)
[2016-12-08] MEDS ORDERED: 0.9 % SODIUM CHLORIDE 1,000 ML IV ONE ×2 (21:23→22:07)
[2016-12-08] MEDS ORDERED: NITROFURANTOIN SR 100 MG CAPSULE PO ONE (21:25)
[2016-12-08 22:19] LABS: Basophils # (Auto) 0 K/mcL (0.0-0.3); Basophils % (Auto) 0.1 % (0.0-2.0); Eosinophils # (Auto) 0.1 K/mcL (0.0-0.7); Eosinophils % (Auto) 0.6 % (0.0-7.0); Granulocytes % (Auto) 93.5 % (38.0-78.0); Lymphocytes # (Auto) 0.7 K/mcL (1.5-4.8); Lymphocytes % (Auto) 3.6 % (15.5-49.0); Mean Cell Volume 86.5 fL (80.0-100.0); Mean Corpuscular HGB Conc 33.9 g/dL (31.0-36.0); Mean Corpuscular Hemoglobin 29.3 pg (26.0-34.0); Monocytes # (Auto) 0.4 K/mcL (0.1-0.9); Monocytes % (Auto) 2.2 % (1.0-12.0); Platelet Count 132 K/mcL (140-440); RBC 4.24 M/mcL (4.00-5.20); Red Cell Distribution Width 15.3 % (11.5-14.5)
[2016-12-08 23:01] LABS: ALT/SGPT 63 U/l (0-40); Albumin 3.1 gm/dL (3.2-5.2); Alkaline Phosphatase 105 U/L (39-117); Blood Urea Nitrogen 40 mg/dl (8-23)
--- NOTE | 2016-12-08 23:34 | Emergency Department Note ---
Weakness HPI - General Chief complaint: Weakness Stated complaint: weakness Time Seen by Provider: 12/08/16 21:22 Source: patient, other Mode of arrival: wheelchair Limitations: no limitations, altered mental status - History of Present Illness HPI Narrative: 71-year-old with significant dementia comes in from [facility] with a 2 day history of worsening weakness and gait abnormality. Unknown last bowel movement. She denies any shortness of breath and fever but clearly her temperature is elevated today at 100.2. I am unable to get any meaningful history or review of systems secondary to memory loss. History is per powder worker accompanying her. She has not been able to urinate - Related Data Home Medications Medication Instructions Recorded Confirmed Docusate Sodium [Colace] 100 mg PO DAILY 10/18/16 12/08/16 Polyethylene Glycol 3350 [Miralax] 17 gm PO DAILY 10/18/16 12/08/16 Sertraline [Zoloft] 150 mg PO DAILY 10/18/16 12/08/16 risperiDONE [Risperdal M-Tab] 3 mg PO HS 10/18/16 12/08/16 risperiDONE [Risperidone] 1 mg PO TID 10/18/16 12/08/16 Fluticasone Propionate [Flovent 50 mcg IH ONCE 12/08/16 12/08/16 Diskus] LORazepam [Ativan] 0.5 mg PO Q8HP PRN 12/08/16 12/08/16 Lisinopril [Zestril] 5 mg PO ONCE 12/08/16 12/08/16 Previous Rx's Medication Instructions Recorded Acetaminophen [Tylenol] 650 mg PO Q6HP PRN tablet 10/20/16 Allergies Allergy/AdvReac Type Severity Reaction Status Date / Time iodine Allergy Unknown PT DOES Verified 10/18/16 16:18 NOT RECALL RXN Penicillins Allergy Unknown PT DOES Verified 10/18/16 16:18 NOT RECALL RXN Review of Systems Limitations: ROS unobtainable due to patients medical condition Past Medical History - Past Medical History Attestation: Yes: The following information was validated with the patient. 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 Normocephalic atraumatic. Conjunctive are clear sclerae white and nonicteric. No nasal discharge or congestion. Oropharynx is pink and moist. Neck is supple without lymphadenopathy or thyromegaly. Heart is regular rate and rhythm no murmurs appreciated. Lungs are clear to auscultation bilaterally without wheezes rales rhonchi or respiratory distress. Abdomen is soft mildly diffusely tender but especially so in the left lower quadrant-she winced with tenderness right after she told me she was not feeling any pain. No pedal edema. +2 radial pulse. Significant memory loss, oriented only to person. Globally weak such that she cannot get up without assistance - General Limitations: no limitations Course Vital Signs Temperature 100.2 F H 12/08/16 21:17 Pulse Rate 95 H 12/08/16 21:17 Respiratory Rate 19 12/08/16 21:17 Blood Pressure 112/63 12/08/16 21:17 Pulse Oximetry (%) 97 12/08/16 21:17 Temperature 100.2 F H 12/08/16 21:48 Pulse Rate 91 H 12/08/16 22:35 Respiratory Rate 17 12/08/16 22:33 Blood Pressure 93/50 12/08/16 22:35 Pulse Oximetry (%) 95 12/08/16 22:35 Weakness - Lab Data Lab results reviewed: Yes I reviewed the patient's lab results. Result diagrams: 12/08/16 21:34 12/08/16 21:34 Lab Results 12/08/16 12/08/16 12/08/16 Range/Units 21:34 21:34 21:34 WBC 18.4 H (4.5-11.0) K/mcL RBC 4.24 (4.00-5.20) M/mcL Hgb 12.4 (12.0-15.0) g/dL Hct 36.7 (36.0-48.0) % POC Hct 37.0 (36.0-48.0) % MCV 86.5 (80.0-100.0) fL MCH 29.3 (26.0-34.0) pg MCHC 33.9 (31.0-36.0) g/dL RDW 15.3 H (11.5-14.5) % Plt Count 132 L (140-440) K/mcL MPV 9.0 (7.4-10.4) fL Gran % 93.5 H (38.0-78.0) % Lymph % (Auto) 3.6 L (15.5-49.0) % [place] % (Auto) 2.2 (1.0-12.0) % Eos % (Auto) 0.6 (0.0-7.0) % Baso % (Auto) 0.1 (0.0-2.0) % Gran # 17.2 H (1.8-8.0) K/mcL Lymph # (Auto) 0.7 L (1.5-4.8) K/mcL [place] # (Auto) 0.4 (0.1-0.9) K/mcL Eos # (Auto) 0.1 (0.0-0.7) K/mcL Baso # (Auto) 0 (0.0-0.3) K/mcL Differential Comment (()) VBG Lactic Acid 2.6 H (0.5-2.2) mmol/L POC Sodium 137 (133-145) mmol/L Sodium 135 (133-145) mmol/L POC Potassium 3.8 (3.3-5.1) mmol/L Potassium 3.8 (3.3-5.1) mmol/L POC Chloride 101 (96-108) mmol/L Chloride 97 (96-108) mmol/L Carbon Dioxide 21 L (22-30) mmol/L POC Total CO2 23 (22-30) mmol/L Anion Gap 17.0 H (8-16) POC BUN 38 H (8-23) mg/dl BUN 40 H (8-23) mg/dl Creatinine 1.9 H (0.6-1.1) mg/dl POC Creatinine 2.1 H (0.6-1.1) mg/dl GFR Calculation 26 Glucose 145 H (70-105) mg/dL POC Glucose 141 H (70-105) mg/dL Calcium 9.1 (8.6-10.4) mg/dl POC WB Ioniz Calcium 1.22 (1.16-1.32) mmol/L Magnesium 2.0 (1.6-2.5) mg/dL Total Bilirubin 0.7 (0.0-1.0) mg/dL AST 62 H (0-37) U/l ALT 63 H (0-40) U/l Alkaline Phosphatase 105 (39-117) U/L Troponin T (0-0.03) ng/ml Total Protein 6.2 (5.9-8.4) gm/dL Albumin 3.1 L (3.2-5.2) gm/dL Globulin 3.1 (2.2-3.7) gm/dL Albumin/Globulin Ratio 1.0 (1.0-2.3) 12/08/16 Range/Units 21:34 WBC (4.5-11.0) K/mcL RBC (4.00-5.20) M/mcL Hgb (12.0-15.0) g/dL Hct (36.0-48.0) % POC Hct (36.0-48.0) % MCV (80.0-100.0) fL MCH (26.0-34.0) pg MCHC (31.0-36.0) g/dL RDW (11.5-14.5) % Plt Count (140-440) K/mcL MPV (7.4-10.4) fL Gran % (38.0-78.0) % Lymph % (Auto) (15.5-49.0) % [place] % (Auto) (1.0-12.0) % Eos % (Auto) (0.0-7.0) % Baso % (Auto) (0.0-2.0) % Gran # (1.8-8.0) K/mcL Lymph # (Auto) (1.5-4.8) K/mcL [place] # (Auto) (0.1-0.9) K/mcL Eos # (Auto) (0.0-0.7) K/mcL Baso # (Auto) (0.0-0.3) K/mcL Differential Comment (()) VBG Lactic Acid (0.5-2.2) mmol/L POC Sodium (133-145) mmol/L Sodium (133-145) mmol/L POC Potassium (3.3-5.1) mmol/L Potassium (3.3-5.1) mmol/L POC Chloride (96-108) mmol/L Chloride (96-108) mmol/L Carbon Dioxide (22-30) mmol/L POC Total CO2 (22-30) mmol/L Anion Gap (8-16) POC BUN (8-23) mg/dl BUN (8-23) mg/dl Creatinine (0.6-1.1) mg/dl POC Creatinine (0.6-1.1) mg/dl GFR Calculation Glucose (70-105) mg/dL POC Glucose (70-105) mg/dL Calcium (8.6-10.4) mg/dl POC WB Ioniz Calcium (1.16-1.32) mmol/L Magnesium (1.6-2.5) mg/dL Total Bilirubin (0.0-1.0) mg/dL AST (0-37) U/l ALT (0-40) U/l Alkaline Phosphatase (39-117) U/L Troponin T 0.01 (0-0.03) ng/ml Total Protein (5.9-8.4) gm/dL Albumin (3.2-5.2) gm/dL Globulin (2.2-3.7) gm/dL Albumin/Globulin Ratio (1.0-2.3) 10% bands on CBC Urinalysis [id number] dipstick shows moderate leukocytes large amount of blood negative nitrates and specific gravity 1.025 - Radiology Data Radiology results reviewed: Yes I reviewed the patient's radiology results. Chest x-ray shows no acute cardiopulmonary pathology-tiny pleural effusions bilaterally on x-ray and CT scan-no significant difference from prior several months ago CT of the abdomen and pelvis without contrast is done read by Calderon which shows 9.8 mm stone in the left renal pelvis at the UPJ with moderate to mild hydronephrosis. Hepatomegaly is which is likely chronic is also seen-out ascites. See full report - EKG Data EKG attestation: Yes I reviewed and interpreted this EKG. EKG results narrative: EKG shows rate of 97 normal sinus rhythm Q waves in V1 and V2 for possible previous anteroseptal infarct. Left anterior fascicular block Disposition Pt seen by PLACEMENT COORDINATOR/PA only: No Clinical Impression: Kidney stone on left side, Acute kidney injury, SIRS (systemic inflammatory response syndrome) UTI (urinary tract infection) Qualifiers: Urinary tract infection type: acute cystitis Hematuria presence: with hematuria Qualified Code(s): N30.01 - Acute cystitis with hematuria Summary: Patient received 2 L of normal saline while working up. Received Tylenol for fever and initially gave Macrobid for UTI on dipstick prior to the rest of her labs come back. Tolerated this without difficulty Laboratory shows acute kidney failure with increase of creatinine to 1.9. White count is elevated with a 10% bandemia along with lactic acid. liver enzymes are chronically up with corresponding hepatomegaly seen on CT scan. Could not do CT scan with contrast secondary to allergy to iodine and elevated creatinine. However CT scan still shows large UPJ left-sided stone 9.8 mm with several smaller stones in the left kidney. Chest x-ray shows some atelectasis and tiny pleural effusions. Started Levaquin to cover for SIRS, has penicillin allergy She is a full code per nursing facility. She has significant dementia and has some sundowning-she does not want to stay in the hospital but unfortunately she is too weak to get up. Discussed her situation with Dr. Garsia who agreed to consult on her tomorrow morning. Then discussed the situation with Dr. Valeria Ulrich the hospitalist who agreed to accept the patient for further care and evaluation Disposition: Xfer As Inpt ([facility]) Condition: Fair Referrals: Elizabeth Riggins [Primary Care Provider] -
--- NOTE | 2016-12-08 23:42 | Internal Med History&Physical ---
Medical - H&P: [facility] Patient information: Note initiated : 12/08/16 at 11:41 pm Service Date, if different from initiated Date: [] Patient: Nicole Hillman a 71 y/o F admitted on for weakness. Chief Complaint: [] History of present illness: Ms. Hillman is a 71 year old F History of present illness: Ms. Hillman is a 71 year old female who lives at the [facility]. She was sent over today . for fever, weakness, decreased oral intake. ER evaluation found her to be hypotensive, tachycardic, febrile with leukocytosis and acute kidney injury. The patient has dementia, and unfortunately is not accompanied by anyone. When I entered her room this evening, she was walking with a walker to and from the bathroom. She has a slow shuffling gait, but seemed to have reasonable strength. She is an unreliable historian. She is not quite sure where she is or why she was sent here. She does deny fever chills, headaches or dizziness, chest pain or shortness of breath, GI or symptoms, but it appears she is unreliable. Past medical history: Schizoaffective disorder Bipolar mood disorder Dementia with psychosis, agitation Constipation Urinary tract infection. Medications: Tylenol 650 mg every 6 hours as needed Flovent discus 50 mcg 1 inhalation daily Colace 100 mg daily Lisinopril/5 mg daily MiraLAX 17 g daily Risperdal 1 mg 3 times daily Risperdal 3 mg nightly Zoloft 150 mg daily Allergies: Iodine, penicillin Social history: Patient is currently living at [facility]. Her son lives nearby. She was previously living alone, but struggling with finances, and reportedly not eating very well. The patient denies tobacco, alcohol, drug use, but history is unreliable. Family history: Is unknown, and the patient does not know. Medical - H&P: Meds Home Medications Medication Instructions Recorded Confirmed Type Docusate Sodium [Colace] 100 mg PO DAILY 10/18/16 12/09/16 History Polyethylene Glycol 3350 [Miralax] 17 gm PO DAILY 10/18/16 12/09/16 History Sertraline [Zoloft] 100 mg PO DAILY 10/18/16 12/09/16 History risperiDONE [Risperdal M-Tab] 3 mg PO HS 10/18/16 12/09/16 History risperiDONE [Risperidone] 1 mg PO TID 10/18/16 12/09/16 History Fluticasone Propionate [Flovent 1 - 2 spray IH DAILY 12/08/16 12/09/16 History Diskus] LORazepam [Ativan] 1 tab PO TIDP PRN 12/08/16 12/09/16 History Lisinopril [Zestril] 5 mg PO DAILY 12/08/16 12/09/16 History Acetaminophen [Tylenol] 1 - 2 tab PO Q6HP PRN 12/09/16 12/09/16 History Sertraline [Zoloft] 1 tab PO DAILY 12/09/16 12/09/16 History Allergies Allergy/AdvReac Type Severity Reaction Status Date / Time iodine Allergy Unknown PT DOES Verified 10/18/16 16:18 NOT RECALL RXN Penicillins Allergy Unknown PT DOES Verified 10/18/16 16:18 NOT RECALL RXN Medical - H&P: Exam - Constitutional Vitals: Temp Pulse Resp BP Pulse Ox 100.2 F H 91 H 17 93/50 95 12/08/16 21:48 12/08/16 22:35 12/08/16 22:33 12/08/16 22:35 12/08/16 22:35 On exam, she was awake and alert. Head: Normocephalic atraumatic. Eyes: PERRLA, EOMI, anicteric. Ears: Right-sided cerumen. Left clear. Pharynx: Pharynx was clear. Mucosa looks dry. Teeth are in fair condition. Neck: Is supple, without obvious lymphadenopathy, JVD, thyromegaly, bruits. Cardiac exam shows regular rate and rhythm with normal S1 and S2, without murmurs rubs or gallops. Lungs she does have a few crackles at the right base, but otherwise lungs are clear, without rhonchi or wheezes. Abdomen: Soft. There may be a little bit of suprapubic tenderness, but no guarding or rebound. Bowel sounds are active. Extremities: She has no cyanosis or clubbing. There is just a trace edema at the ankles. Neurologic exam: The patient is awake and alert, calm and cooperative. She is not oriented to place or time, and cannot recall why she is here. Motor exam is grossly nonfocal. Medical - H&P: Reslt - Labs CBC & Chem 7: 12/09/16 04:26 12/09/16 04:26 Labs: Short CBC 12/08/16 Range/Units 21:34 WBC 18.4 H (4.5-11.0) K/mcL Hgb 12.4 (12.0-15.0) g/dL Hct 36.7 (36.0-48.0) % Plt Count 132 L (140-440) K/mcL BMP 12/08/16 21:34 Sodium 135 Potassium 3.8 Chloride 97 Carbon Dioxide 21 L BUN 40 H Creatinine 1.9 H Glucose 145 H Calcium 9.1 Cardiac Enzymes 12/08/16 Range/Units 21:34 Troponin T 0.01 (0-0.03) ng/ml Liver Function 12/08/16 Range/Units 21:34 Total Bilirubin 0.7 (0.0-1.0) mg/dL AST 62 H (0-37) U/l ALT 63 H (0-40) U/l Alkaline Phosphatase 105 (39-117) U/L Albumin 3.1 L (3.2-5.2) gm/dL December 08: CBC: White blood cell count 18,400, hemoglobin 12, hematocrit 36, platelets 132, 000. Differential shows a granulocyte count of 17,200. Next Lactic acid is elevated at 2.6 Chemistry panel is notable for CO2 of 21, anion gap of 17, BUN 40, creatinine 1.9, glucose 145 AST is elevated at 62, ALT 63, albumin 3.1 Urinalysis: Shows 100 mg of protein, 500 leukocyte esterase, 123 white cells, many bacteria. CT of the abdomen: Shows a solitary 7 mm stone in the left UPJ region with left hydronephrosis. Also 4-5 small stones in the inferior calyx of the left kidney. Mild hepatomegaly. Small amount of ascites. Cholelithiasis. Small bilateral pleural effusions. Chest x-ray: Was read as normal. Medical - H&P: A/P (1) Dementia Current visit: No Status: Chronic (2) UTI (urinary tract infection) Current visit: Yes Status: Acute (3) Sepsis associated hypotension Current visit: No Status: Suspected (4) Kidney stone on left side Current visit: Yes Status: Acute - Narrative A/P Narrative: #1. Infectious disease/. Patient presents with signs of early sepsis, with hypotension, fever, tachycardia, leukocytosis, and evidence of urinary tract infection, UPJ stone, and possible depressed mental status from baseline. -Patient admitted for further observation and treatment. -IV fluids for rehydration. -Rocephin for empiric antibiotic coverage for UTI. -Urine and blood cultures -IV pain meds and antiemetics. -Urology consult -N.p.o. until evaluated by urology, pending decisions about procedures. 2. Psychiatric. Patient has history of dementia, schizoaffective disorder, bipolar disorder. She appears to have severe memory loss. Continue Risperdal and Zoloft for now. 3. History of constipation. Continue Colace and MiraLAX as needed. 4. DVT prophylaxis: Subcu heparin. 5. CODE STATUS: Patient will remain full code for now. 6. Presumed hypertension, given her blood pressure meds. These will be held, while hypotension is monitored. Approximately 50 minutes was spent today, reviewing the patient's case with the ER MD, reviewing test results, interviewing and examining the patient, and writing orders.
[2016-12-08] MEDS ORDERED: LEVOFLOXACIN 500 MG/100 ML BAG IV ONE (23:45)
[2016-12-09] MEDS ORDERED: ACETAMINOPHEN 325 MG TABLET PO PRN (00:22)
[2016-12-09] MEDS ORDERED: MAGNESIUM HYDROXIDE 30 ML ORAL.SUSP PO PRN ×2 (00:22→14:02)
[2016-12-09] MEDS ORDERED: ONDANSETRON 4 MG/2 ML VIAL IV PRN ×3 (00:22→14:02)
[2016-12-09] MEDS ORDERED: cefTRIAXone 1 GM in DEXTROSE 5% IN WATER 50 ML IV SCH ×2 (00:22→18:00)
[2016-12-09] MEDS ORDERED: NALOXONE HCL 0.4 MG/ML VIAL IV PRN ×2 (00:22→14:02)
[2016-12-09] MEDS ORDERED: cefTRIAXone 1 GM VIAL ONE (01:30)
[2016-12-09] MEDS ORDERED: LORazepam 0.5 MG TABLET PO PRN ×2 (02:06→14:02)
[2016-12-09 02:14] LABS: Appearance,Urine CLOUDY; Bacteria,Urine MANY /hpf (0); Bilirubin,Urine NEG (NEG); Color,Urine AMBER; Glucose,Urine (UA) NEGATIVE (NEG); Leukocyte Esterase,Urine 500 /uL (NEG); Mucus,Urine FEW /hpf (0); Nitrate,Urine NEG (NEG); Protein,Urine 100 mg/dL (NEG); Specific Gravity,Urine 1.016 (1.000-1.035); Urine Amorphous Crystals MOD /hpf (0); Urine Blood 0.2 mg/dL (<0.03); Urine RBC 22 /hpf (0-1); Urine Squamous Epithelial Cell 0 /hpf (0-4); Urine Transitional Epi Cells < 1 /hpf (0-2); Urine WBC 123 /hpf (0-4); Urobilinogen,Urine NEG (NEG)
[2016-12-09 06:32] LABS: Basophils # (Auto) 0 K/mcL (0.0-0.3); Basophils % (Auto) 0.1 % (0.0-2.0); Eosinophils # (Auto) 0.1 K/mcL (0.0-0.7); Eosinophils % (Auto) 0.6 % (0.0-7.0); Lymphocytes # (Auto) 0.5 K/mcL (1.5-4.8); Lymphocytes % (Auto) 3.5 % (15.5-49.0); Mean Corpuscular HGB Conc 33.8 g/dL (31.0-36.0); Mean Corpuscular Hemoglobin 29.1 pg (26.0-34.0); Monocytes # (Auto) 0.3 K/mcL (0.1-0.9); Monocytes % (Auto) 1.8 % (1.0-12.0); Platelet Count 113 K/mcL (140-440); RBC 3.93 M/mcL (4.00-5.20)
--- NOTE | 2016-12-09 06:57 | XRay Report ---
CLINICAL INFORMATION: Cough and fever COMPARISON: 10/19/2016 FINDINGS: Heart is normal for technique. Mediastinum and pulmonary vessels are unremarkable. Lungs are clear. No effusions. IMPRESSION: Negative Interpreted and Authenticated by: Praful Hanna 12/09/16
[2016-12-09 07:12] LABS: ALT/SGPT 56 U/l (0-40); Albumin 2.8 gm/dL (3.2-5.2); Albumin/Globulin Ratio 0.9 (1.0-2.3); Alkaline Phosphatase 104 U/L (39-117); Bilirubin,Direct < 0.2 mg/dL (0.0-0.3); Blood Urea Nitrogen 33 mg/dl (8-23); Gamma Glutamyl Transpeptidase 64 U/L (5-36); Magnesium 1.9 mg/dL (1.6-2.5); Uric Acid 4.5 mg/dL (2.5-8.0)
--- NOTE | 2016-12-09 07:14 | Cat Scan Report ---
CLINICAL INFORMATION: Left lower quadrant pain COMPARISON: None. TECHNIQUE: 2.5 mm helical slices were obtained from the mid heart through the subtrochanteric regions. Following reconstruction, 2.5 mm sagittal, coronal and axial reformatted images were processed and reviewed at bone, lung and soft tissue windows. FINDINGS: Small bilateral pleural effusions are noted. There is minor atelectasis in the posterior right lower lobe. The visualized heart is grossly normal. Images through the abdomen show the noncontrasted liver is borderline enlarged. A 9 mm low-attenuation lesion in the lateral left hepatic lobe is likely a cyst. Few tiny stones layer dependently within the gallbladder. The gallbladder is otherwise normal. The intrahepatic and common bile ducts are normal caliber: CBD is 5 mm. The noncontrasted right kidney, both adrenal glands, pancreas, spleen and aorta are unremarkable. There is a 7 mm (short axis) stone in the UPJ of the left upper collecting system resulting in moderate left hydronephrosis. 4-5 smaller obstructing stones, ranging up to 5 mm MR seen in the inferior calyx of the left kidney. The left kidney is mildly enlarged compatible with diffuse edema with modest perinephric fluid. The noncontrast stomach, small and large bowel show symmetric dilatation about mild ileus. A small amount of free fluid in the deep true pelvis and perihepatic regions.. There is no adenopathy or free air. The bone windows show no significant osseous abnormality IMPRESSION: 1. Solitary seven mm stone in the UPJ region of the proximal left ureter resulting in moderate left hydronephrosis. There are 4-5 small or nonobstructing stones in the inferior calyx of the left kidney 2. Mild hepatomegaly. Small amount of ascites is noted in the perihepatic and deep true pelvic region. Please correlate with LFTs and total protein etc. 3. Cholelithiasis. Gallbladder bile is otherwise normal 4. Small bilateral pleural effusions Interpreted and Authenticated by: Praful Hanna 12/09/16
--- NOTE | 2016-12-09 07:29 | General Surgery Progress Note ---
Surgical - Auxillary Note - Subjective Patient Information: Note initiated : 12/09/16 at 7:28 am Service Date, if different from initiated Date: [] Patient: Nicole Hillman 71 y/o F admitted on 12/09/16 for weakness. Chief Complaint: [] pt in 9mm left renal stone. will take to surgery for stent placement.
--- NOTE | 2016-12-09 08:04 | Consultation ---
DATE OF CONSULTATION: 12/09/2016 REQUESTING PHYSICIAN: Dr. Ulrich. HISTORY OF PRESENT ILLNESS: The patient is a 71-year-old lady who came into the Emergency Room last night where she was found to be hypertensive and tachycardic and febrile. The patient denies any real problems. A CT scan was obtained which did show a left renal stone approximately 9 mm in size. This was at the J. I have been asked to evaluate her. The patient is a very poor historian. There are no records that accompany her. There is no history of stones. She presents now for evaluation. PAST MEDICAL HISTORY: Significant for schizophrenia, bipolar disorder, dementia, constipation and urinary tract infection. CURRENT MEDICATIONS: 1. Tylenol. 2. Flovent. 3. Colace. 4. Lisinopril. 5. Risperdal. 6. Zoloft. ALLERGIES: IODINE AND PENICILLIN. SOCIAL HISTORY: Lives in a halfway. We are trying to reach her power of bankruptcy attorney. Denies any tobacco or alcohol use. FAMILY HISTORY: Unknown. PAST SURGICAL HISTORY: Please see the dictation by the hospitalist, but could not be obtained from the patient. PHYSICAL EXAMINATION: GENERAL: This is a patient in slight distress. She is just asking for water. HEENT: Atraumatic and normocephalic. Extraocular movements are intact. Pupils equal and reactive to light and accommodation. No thyromegaly is noted. No mucosal lesions. LUNGS: Clear to auscultation. HEART: Regular rate and rhythm. ABDOMEN: Diffusely tender, says it hurts everywhere. No palpable masses. GENITOURINARY: Normal female anatomy. EXTREMITIES: Without clubbing, cyanosis or edema. NEUROLOGIC: Alert and oriented x1. Cranial nerves II-XII intact. LABORATORY DATA: White count 18,000. IMPRESSION: Patient with a left renal stone, which appears to be blocking her kidney, worsening her renal function. I have talked to her about the options and I feel at this time that we need to place a stent to drain the kidney to bypass the obstruction. She will be taken to the operating room today and the stent will be placed. We will then follow up after she defervesces with lithotripsy or other treatment for the stone. We could not hold a PARQ discussion because of her mental status. PLAN: Cystoscopy with left stent placement. TANNA:ibis Job ID: [id number] Doc ID: [id number] Jorden Garsia MD
[2016-12-09] MEDS ORDERED: SERTRALINE 50 MG TABLET PO SCH ×2 (09:00)
[2016-12-09] MEDS ORDERED: HEPARIN 5,000 UNIT/ML VIAL SQ SCH (09:00)
[2016-12-09] MEDS ORDERED: POLYETHYLENE GLYCOL 3350 17 GM PACKET PO SCH (09:00)
[2016-12-09] MEDS ORDERED: Fluticasone Propionate [Flovent Diskus] 50 MCG INH SCH (09:00)
--- NOTE | 2016-12-09 11:23 | Internal Med Progress Note ---
Medical - PN: Subj Patient information: Note initiated : 12/09/16 at 11:23 am Service Date, if different from initiated Date: [] Patient: Nicole Hillman 71 y/o F admitted on 12/09/16 for weakness. Chief Complaint: [] Interval history: December 08, 2016: History of present illness: Ms. Hillman is a 71 year old female who lives at the [facility]. She was sent over today . for fever, weakness, decreased oral intake. ER evaluation found her to be hypotensive, tachycardic, febrile with leukocytosis and acute kidney injury. The patient has dementia, and unfortunately is not accompanied by anyone. When I entered her room this evening, she was walking with a walker to and from the bathroom. She has a slow shuffling gait, but seemed to have reasonable strength. She is an unreliable historian. She is not quite sure where she is or why she was sent here. She does deny fever chills, headaches or dizziness, chest pain or shortness of breath, GI or symptoms, but it appears she is unreliable. December 09: This morning, the patient says she feels okay. She has no specific complaints. She denies flank pain or dysuria, chest pain or palpitations, shortness of breath, nausea or vomiting or diarrhea. Her son arrives today, and says he will be around all day to authorize and review test. Dr. Garsia did take her for cystoscopy later this morning, and stented around the UPJ stone. - Constitutional Vitals: Vital Signs Temp Pulse Resp BP Pulse Ox 98.9 F 97 H 18 121/52 98 12/09/16 08:00 12/09/16 04:00 12/09/16 08:00 12/09/16 08:00 12/09/16 08:00 Period Temp Pulse Resp BP Sys/Fisher Pulse Ox Last 24 Hr 98.1 F-100.2 F 75-100 16-19 78-157/48-76 94-98 Intake and Output 12/08/16 12/09/16 12/09/16 21:59 05:59 13:59 Intake Total 1000 / 1000 Output Total 50 / 50 500 / 500 Balance -50 / -50 500 / 500 Weight 110 lb 110 lb Intake & Output: Intake & Output 1012/09/16 12/09/16 21:59 05:59 13:59 Intake Total 1000 / 1000 Output Total 50 / 50 500 / 500 Balance -50 / -50 500 / 500 Weight 110 lb 110 lb Intake: IV 1000 / 1000 Sodium Chloride 0.9% 1,000 ml @ 1000 / 1000 Wide Open IV BOLUS ONE Rx#: [id number] Output: Urine Catheter Amount 500 / 500 Void Amount 50 / 50 Straight 50 / 50 On exam, she is awake and alert and pleasant and in no acute distress. Neck is supple without JVD. Cardiac exam shows regular rate and rhythm. Lungs are fairly clear to auscultation. Abdomen is soft and nontender. Extremities show no edema. Neurologic exam: Patient is not oriented, but otherwise exam is nonfocal. Medical - PN: Obj Da - Labs CBC & Chem 7: 12/09/16 04:26 12/09/16 04:26 Labs: Abnormal Lab Results 12/09/16 12/09/16 12/09/16 09:20 04:26 04:26 WBC 14.6 H RBC 3.93 L Hgb 11.4 L Hct 33.8 L RDW 15.0 H Plt Count 113 L Gran % 94.0 H Lymph % (Auto) 3.5 L Gran # 13.7 H Lymph # (Auto) 0.5 L PT 17.8 H INR 1.4 H VBG Lactic Acid Carbon Dioxide Anion Gap POC BUN BUN 33 H Creatinine 1.4 H POC Creatinine Glucose POC Glucose Calcium 8.5 L Phosphorus 2.4 L GGT 64 H AST 50 H ALT 56 H Total Protein 5.8 L Albumin 2.8 L Albumin/Globulin Ratio 0.9 L Urine Protein Urine Occult Blood Ur Leukocyte Esterase Urine RBC Urine WBC Amorphous Crystals Urine Bacteria 12/08/16 12/08/16 12/08/16 21:56 21:34 21:34 WBC RBC Hgb Hct RDW Plt Count Gran % Lymph % (Auto) Gran # Lymph # (Auto) PT INR VBG Lactic Acid 2.6 H Carbon Dioxide 21 L Anion Gap 17.0 H POC BUN 38 H BUN 40 H Creatinine 1.9 H POC Creatinine 2.1 H Glucose 145 H POC Glucose 141 H Calcium Phosphorus GGT AST 62 H ALT 63 H Total Protein Albumin 3.1 L Albumin/Globulin Ratio Urine Protein 100 A Urine Occult Blood 0.2 A Ur Leukocyte Esterase 500 A Urine RBC 22 H Urine WBC 123 H Amorphous Crystals Mod A Urine Bacteria Many A 12/08/16 21:34 WBC 18.4 H RBC Hgb Hct RDW 15.3 H Plt Count 132 L Gran % 93.5 H Lymph % (Auto) 3.6 L Gran # 17.2 H Lymph # (Auto) 0.7 L PT INR VBG Lactic Acid Carbon Dioxide Anion Gap POC BUN BUN Creatinine POC Creatinine Glucose POC Glucose Calcium Phosphorus GGT AST ALT Total Protein Albumin Albumin/Globulin Ratio Urine Protein Urine Occult Blood Ur Leukocyte Esterase Urine RBC Urine WBC Amorphous Crystals Urine Bacteria December 09: MRSA screen is negative. Blood cultures: Are growing a gram-negative bacillus December 08: CBC: White blood cell count 18,400, hemoglobin 12, hematocrit 36, platelets 132, 000. Differential shows a granulocyte count of 17,200. Next Lactic acid is elevated at 2.6 Chemistry panel is notable for CO2 of 21, anion gap of 17, BUN 40, creatinine 1.9, glucose 145 AST is elevated at 62, ALT 63, albumin 3.1 Urinalysis: Shows 100 mg of protein, 500 leukocyte esterase, 123 white cells, many bacteria. CT of the abdomen: Shows a solitary 7 mm stone in the left UPJ region with left hydronephrosis. Also 4-5 small stones in the inferior calyx of the left kidney. Mild hepatomegaly. Small amount of ascites. Cholelithiasis. Small bilateral pleural effusions. Chest x-ray: Was read as normal. Meds: Medications Acetaminophen (Tylenol) 650 mg PO Q6HP PRN PRN Reason: PAIN/FEVER > 101 Docusate Sodium (Colace) 100 mg PO HSP PRN PRN Reason: Constipation Docusate Sodium (Colace) 100 mg PO DAILY [facility] Heparin Sodium (Porcine) (Heparin) 5,000 unit SQ Q12 [facility] Ceftriaxone Sodium 1 gm/ (Dextrose) 50 mls @ 100 mls/hr IV DAILY [facility] Lorazepam (Ativan) 0.5 mg PO TIDP PRN PRN Reason: Anxiety Magnesium Hydroxide (Milk Of Magnesia) 30 ml PO DAILYP PRN PRN Reason: Constipation Morphine Sulfate (Morphine) 2 mg IV Q2HP PRN PRN Reason: Pain Naloxone HCl (Narcan) 0.1 mg IV Q2MIN PRN PRN Reason: Opiate Reversal Ondansetron HCl (Zofran) 4 mg IV Q6HP PRN PRN Reason: Nausea And Vomiting Fluticasone Propionate [Flovent Diskus] 50 Mcg 1 - 2 dose INH DAILY [facility] Polyethylene Glycol (Miralax) 17 gm PO DAILY TIFF Risperidone (Risperdal) 3 mg PO HS TIFF Risperidone (Risperdal) 1 mg PO TIDCC [facility] Sertraline HCl (Zoloft) 150 mg PO DAILY [facility] Sodium Chloride (Saline Flush) 10 ml IV Q8 [facility] Medical - PN: A/P - Time Spent With Patient Total time spent is greater than 50% in coordination of care (as documented) at patient's floor/unit and/or counseling patient: 25 - 35 minutes (1) Dementia Status: Chronic Current Visit: No (2) UTI (urinary tract infection) Status: Acute Current Visit: Yes (3) Sepsis associated hypotension Status: Suspected Current Visit: No (4) Kidney stone on left side Status: Acute Current Visit: Yes - Narrative A/P Narrative: #1. Infectious disease/. Patient presents with signs of early sepsis, with hypotension, fever, tachycardia, leukocytosis, and evidence of urinary tract infection, UPJ stone, and possible depressed mental status from baseline. Patient has now had her UPJ stented. She should do fine. She is growing gram- negative bacilli in her blood, so we will need 1-2 weeks of IV antibiotics. -IV fluids for rehydration. -Rocephin for empiric antibiotic coverage for UTI. -Urine and blood cultures -IV pain meds and antiemetics. -Urology following. 2. Psychiatric. Patient has history of dementia, schizoaffective disorder, bipolar disorder. She appears to have severe memory loss. Continue Risperdal and Zoloft for now. 3. History of constipation. Continue Colace and MiraLAX as needed. 4. DVT prophylaxis: Subcu heparin. 5. CODE STATUS: Patient will remain full code for now. 6. Presumed hypertension, given her blood pressure meds. These will be held, while hypotension is monitored. 7. Patient presented with acute renal injury last night. BUN and creatinine are quite a bit improved today. Continue to monitor. 8. GI. Mildly elevated LFTs. This appears chronic. Medical - PN: Qual - VTE Deep Vein Thrombosis/Pulmonary Embolism Present on Admission: No
[2016-12-09] MEDS ORDERED: LIDOCAINE HCL/PF 100 MG/5 ML SYRINGE IV ONE (12:40)
[2016-12-09] MEDS ORDERED: PHENYLEPHRINE 10 MG/ML VIAL IV ONE (12:40)
[2016-12-09] MEDS ORDERED: PROPOFOL 200 MG/20 ML VIAL IV ONE (12:40)
--- NOTE | 2016-12-09 13:03 | Brief Operative Note ---
Date of procedure: 12/09/16 Pre-op diagnosis: left renal stone Post-op diagnosis: same Procedure: l renal stent Grafts/Implants: Yes (ureteral stent) Anesthesia: GLMA Findings: see note Complications: none Surgeon: Jorden Garsia Specimens Removed/Pathology: none sent Condition: stable Disposition: PACU
[2016-12-09] MEDS ORDERED: BENZOCAINE/MENTHOL 1 LOZENGE PO PRN (13:04)
[2016-12-09] MEDS ORDERED: METOPROLOL TARTRATE 5 MG/5 ML VIAL IV PRN (13:04)
[2016-12-09] MEDS ORDERED: fentaNYL 100 MCG/2 ML VIAL IV PRN (13:04)
[2016-12-09] MEDS ORDERED: ACETAMINOPHEN 750 MG/75 ML BOTTLE IV ONE (13:04)
[2016-12-09] MEDS ORDERED: OPIUM/BELLADONNA ALKALOIDS 60 MG SUPP.RECT PR PRN (13:04)
[2016-12-09] MEDS ORDERED: IPRATROPIUM/ALBUTEROL 3 ML AMPUL.NEB NEB PRN (13:04)
[2016-12-09] MEDS ORDERED: LACTATED RINGERS 1,000 ML IV SCH (13:15)
--- NOTE | 2016-12-09 13:17 | Operative Note ---
DATE OF OPERATION: 12/09/2016 PREOPERATIVE DIAGNOSIS: Left renal stone. POSTOPERATIVE DIAGNOSIS: Left renal stone. PROCEDURE: Cystoscopy, stent placement. SURGEON: Jorden Garsia M.D. INDICATION: The patient is a 71-year-old lady who was admitted to the hospital for nausea, vomiting and sepsis. CT scan does show a 1 cm stone in the left UPJ, and she presents now for stent placement and decompression. PROCEDURE: The patient was identified and consent was signed. She was given general anesthesia, placed in lithotomy position, and prepped and draped in a standard fashion. Cystourethroscopy showed normal-appearing urethra. Orifices were in their normal position. Bladder appeared normal. There were no tumors or masses. A wire was placed up into the left kidney using the Seldinger technique, and a 6 x 24 stent was then placed. This showed a good curl in the kidney and the bladder, and the string was not left attached. She will be scheduled for lithotripsy in the future. Her kidney was draining. Her bladder was drained. She was awoken and taken to the recovery room in stable condition. She tolerated the procedure well. TANNA:lucia Job ID: [id number] Doc ID: [id number] Jorden Garsia MD
[2016-12-09] MEDS: 0.9 % SODIUM CHLORIDE 10 ML SYRINGE IV SCH (13:54)
[2016-12-09] MEDS: risperiDONE 1 MG TABLET PO SCH ×4 (13:54→21:55)
[2016-12-09] MEDS: DOCUSATE SODIUM 100 MG CAPSULE PO SCH ×2 (14:01→14:37)
[2016-12-09] MEDS: cefTRIAXone 1 GM in DEXTROSE 5% IN WATER 50 ML IV SCH (18:03)
[2016-12-09] MEDS ORDERED: risperiDONE 1 MG TABLET PO SCH (21:00)
[2016-12-09] MEDS ORDERED: DOCUSATE SODIUM 100 MG CAPSULE PO PRN ×2 (21:00)
[2016-12-09] MEDS: HEPARIN 5,000 UNIT/ML VIAL SQ SCH (21:55)
[2016-12-09] MEDS: ACETAMINOPHEN 325 MG TABLET PO PRN (21:57)
[2016-12-10] MEDS: 0.9 % SODIUM CHLORIDE 10 ML SYRINGE IV SCH ×4 (00:37→20:50)
[2016-12-10 06:38] LABS: Basophils # (Auto) 0 K/mcL (0.0-0.3); Basophils % (Auto) 0.1 % (0.0-2.0); Eosinophils # (Auto) 0.1 K/mcL (0.0-0.7); Granulocytes % (Auto) 91.3 % (38.0-78.0); Lymphocytes # (Auto) 0.5 K/mcL (1.5-4.8); Lymphocytes % (Auto) 4.8 % (15.5-49.0); Mean Cell Volume 86.2 fL (80.0-100.0); Mean Corpuscular HGB Conc 34.2 g/dL (31.0-36.0); Mean Corpuscular Hemoglobin 29.5 pg (26.0-34.0); Monocytes # (Auto) 0.3 K/mcL (0.1-0.9); Monocytes % (Auto) 2.8 % (1.0-12.0); Platelet Count 116 K/mcL (140-440); RBC 3.61 M/mcL (4.00-5.20); Red Cell Distribution Width 15.3 % (11.5-14.5)
[2016-12-10 07:03] LABS: ALT/SGPT 31 U/l (0-40); Albumin 2.5 gm/dL (3.2-5.2); Albumin/Globulin Ratio 0.8 (1.0-2.3); Alkaline Phosphatase 104 U/L (39-117); Bilirubin,Direct < 0.2 mg/dL (0.0-0.3); Blood Urea Nitrogen 19 mg/dl (8-23); Gamma Glutamyl Transpeptidase 62 U/L (5-36); Magnesium 1.8 mg/dL (1.6-2.5); Uric Acid 3.1 mg/dL (2.5-8.0)
[2016-12-10] MEDS: HEPARIN 5,000 UNIT/ML VIAL SQ SCH ×2 (08:07→20:49)
[2016-12-10] MEDS: POLYETHYLENE GLYCOL 3350 17 GM PACKET PO SCH (08:08)
[2016-12-10] MEDS: SERTRALINE 50 MG TABLET PO SCH (08:08)
[2016-12-10] MEDS: DOCUSATE SODIUM 100 MG CAPSULE PO SCH (08:09)
[2016-12-10] MEDS: risperiDONE 1 MG TABLET PO SCH ×4 (08:09→20:49)
[2016-12-10] MEDS: Fluticasone Propionate [Flovent Diskus] 50 MCG INH SCH (08:10)
[2016-12-10] MEDS: cefTRIAXone 1 GM in DEXTROSE 5% IN WATER 50 ML IV SCH (09:36)
--- NOTE | 2016-12-10 10:29 | General Surgery Progress Note ---
Surgical - Auxillary Note - Subjective Patient Information: Note initiated : 12/10/16 at 10:28 am Service Date, if different from initiated Date: [] Patient: Nicole Hillman 71 y/o F admitted on 12/09/16 for weakness. Chief Complaint: [] pod#1 pt. improved. wbc is down, cultures pending. will f/u as outpatient for eswl. 15 minutes spent coordinating care.
[2016-12-10] MEDS: ACETAMINOPHEN 325 MG TABLET PO PRN (20:48)
--- NOTE | 2016-12-10 21:12 | Internal Med Progress Note ---
Medical - PN: Subj Patient information: Note initiated : 12/10/16 at 9:10 pm Service Date, if different from initiated Date: [] Patient: Nicole Hillman 71 y/o F admitted on 12/09/16 for weakness. Chief Complaint: f/u sepsis, complicated UTI Interval history: December 08, 2016: History of present illness: Ms. Hillmna is a 71 year old female who lives at the [facility]. She was sent over today . for fever, weakness, decreased oral intake. ER evaluation found her to be hypotensive, tachycardic, febrile with leukocytosis and acute kidney injury. The patient has dementia, and unfortunately is not accompanied by anyone. When I entered her room this evening, she was walking with a walker to and from the bathroom. She has a slow shuffling gait, but seemed to have reasonable strength. She is an unreliable historian. She is not quite sure where she is or why she was sent here. She does deny fever chills, headaches or dizziness, chest pain or shortness of breath, GI or symptoms, but it appears she is unreliable. December 09: This morning, the patient says she feels okay. She has no specific complaints. She denies flank pain or dysuria, chest pain or palpitations, shortness of breath, nausea or vomiting or diarrhea. Her son arrives today, and says he will be around all day to authorize and review test. Dr. Garsia did take her for cystoscopy later this morning, and stented around the UPJ stone. December 10: Patient awake, complaining of some left-sided back pain. Lunch tray is still at bedside, uneaten, she is unsure if she has an appetite or not. Denies any abdominal pain. - Constitutional Vitals: Vital Signs Temp Pulse Resp BP Pulse Ox 100.6 F H 92 H 18 131/75 95 12/10/16 20:00 12/10/16 20:00 12/10/16 20:00 12/10/16 20:00 12/10/16 20:00 Period Temp Pulse Resp BP Sys/Fisher Pulse Ox Last 24 Hr 98.3 F-101.2 F 88-94 16-18 112-143/69-82 92-97 Intake and Output 12/10/16 12/10/16 12/10/16 05:59 13:59 21:59 Intake Total 150 / 150 420 / 420 Output Total 201 / 201 Balance -51 / -51 419 / 419 Weight 112 lb Patient Weight 12/11/16 05:59 Weight 112 lb Intake & Output: Intake & Output 12/10/16 12/10/16 12/10/16 05:59 13:59 21:59 Intake Total 150 / 150 420 / 420 Output Total 201 / 201 Balance -51 / -51 419 / 419 Weight 112 lb Intake: Oral 150 / 150 420 / 420 Output: Void Amount 200 / 200 # of times incontinent of urine Other: Meal Lunch water pitcher Percent of Meal Consumed Refused Refused # of times incontinent of 1 Bowels General appearance: no acute distress, thin - Head Head exam: Present: atraumatic - Neck Neck exam: Present: full ROM - Respiratory Respiratory exam: Present: normal respiratory exam, CTAB. Absent: rales, wheezes - Cardiovascular Cardiovascular exam: Present: normal rate and rhythm. Absent: rubs, systolic murmur - GI/Abdominal GI/Abdominal exam: Present: normal bowel sounds, soft. Absent: rebound, rigid, tenderness - Back Exam Back exam: Present: CVA tenderness (L) (mild) - Neurological Exam Neurological exam: Present: alert. Absent: oriented X3 (not oriented) - Skin Skin exam: Present: dry, warm. Absent: cyanosis Medical - PN: Obj Da - Labs CBC & Chem 7: 12/10/16 05:23 12/10/16 05:23 Labs: Abnormal Lab Results 12/10/16 12/10/16 12/09/16 05:23 05:23 09:20 WBC RBC 3.61 L Hgb 10.7 L Hct 31.2 L RDW 15.3 H Plt Count 116 L Gran % 91.3 H Lymph % (Auto) 4.8 L Gran # 10.0 H Lymph # (Auto) 0.5 L PT 17.8 H INR 1.4 H VBG Lactic Acid Carbon Dioxide 21 L Anion Gap POC BUN BUN Creatinine POC Creatinine Glucose POC Glucose Calcium 8.4 L Phosphorus 2.0 L GGT 62 H AST ALT Total Protein 5.7 L Albumin 2.5 L Albumin/Globulin Ratio 0.8 L Triglycerides 174 H Urine Protein Urine Occult Blood Ur Leukocyte Esterase Urine RBC Urine WBC Amorphous Crystals Urine Bacteria 12/09/16 12/09/16 12/08/16 04:26 04:26 21:56 WBC 14.6 H RBC 3.93 L Hgb 11.4 L Hct 33.8 L RDW 15.0 H Plt Count 113 L Gran % 94.0 H Lymph % (Auto) 3.5 L Gran # 13.7 H Lymph # (Auto) 0.5 L PT INR VBG Lactic Acid Carbon Dioxide Anion Gap POC BUN BUN 33 H Creatinine 1.4 H POC Creatinine Glucose POC Glucose Calcium 8.5 L Phosphorus 2.4 L GGT 64 H AST 50 H ALT 56 H Total Protein 5.8 L Albumin 2.8 L Albumin/Globulin Ratio 0.9 L Triglycerides Urine Protein 100 A Urine Occult Blood 0.2 A Ur Leukocyte Esterase 500 A Urine RBC 22 H Urine WBC 123 H Amorphous Crystals Mod A Urine Bacteria Many A 12/08/16 12/08/16 12/08/16 21:34 21:34 21:34 WBC 18.4 H RBC Hgb Hct RDW 15.3 H Plt Count 132 L Gran % 93.5 H Lymph % (Auto) 3.6 L Gran # 17.2 H Lymph # (Auto) 0.7 L PT INR VBG Lactic Acid 2.6 H Carbon Dioxide 21 L Anion Gap 17.0 H POC BUN 38 H BUN 40 H Creatinine 1.9 H POC Creatinine 2.1 H Glucose 145 H POC Glucose 141 H Calcium Phosphorus GGT AST 62 H ALT 63 H Total Protein Albumin 3.1 L Albumin/Globulin Ratio Triglycerides Urine Protein Urine Occult Blood Ur Leukocyte Esterase Urine RBC Urine WBC Amorphous Crystals Urine Bacteria Meds: Medications Acetaminophen (Tylenol) 650 mg PO Q6HP PRN PRN Reason: PAIN/FEVER > 101 Last Admin: 12/10/16 20:48 Dose: 650 mg Docusate Sodium (Colace) 100 mg PO HSP PRN PRN Reason: Constipation Docusate Sodium (Colace) 100 mg PO DAILY [facility] Last Admin: 12/10/16 08:09 Dose: 100 mg Heparin Sodium (Porcine) (Heparin) 5,000 unit SQ Q12 [facility] Last Admin: 12/10/16 20:49 Dose: 5,000 unit Ceftriaxone Sodium 1 gm/ (Dextrose) 50 mls @ 100 mls/hr IV DAILY [facility] Last Admin: 12/10/16 09:36 Dose: 100 mls/hr Lorazepam (Ativan) 0.5 mg PO TIDP PRN PRN Reason: Anxiety Magnesium Hydroxide (Milk Of Magnesia) 30 ml PO DAILYP PRN PRN Reason: Constipation Morphine Sulfate (Morphine) 2 mg IV Q2HP PRN PRN Reason: Pain Naloxone HCl (Narcan) 0.1 mg IV Q2MIN PRN PRN Reason: Opiate Reversal Ondansetron HCl (Zofran) 4 mg IV Q6HP PRN PRN Reason: Nausea And Vomiting Fluticasone Propionate [Flovent Diskus] 50 Mcg 1 - 2 dose INH DAILY [facility] Last Admin: 12/10/16 08:10 Dose: Not Given Polyethylene Glycol (Miralax) 17 gm PO DAILY [facility] Last Admin: 12/10/16 08:08 Dose: 17 gm Risperidone (Risperdal) 3 mg PO HS [facility] Last Admin: 12/10/16 20:49 Dose: 3 mg Risperidone (Risperdal) 1 mg PO TIDCC [facility] Last Admin: 12/10/16 17:07 Dose: 1 mg Sertraline HCl (Zoloft) 150 mg PO DAILY [facility] Last Admin: 12/10/16 08:08 Dose: 150 mg Sodium Chloride (Saline Flush) 10 ml IV Q8 [facility] Last Admin: 12/10/16 20:50 Dose: 10 ml Medical - PN: A/P - Narrative A/P Narrative: 1. Infectious disease/. Sepsis from complicated UTI, resolved. s/p stenting of UPJ stone. Hypotension , fever, tachycardia and leukocytosis at presentation. Improved. -E. coli in urine and 4/4 blood cultures, sensitivity pending. -Continue IV fluids. -Continue ceftriaxone for coverage for UTI/sepsis; improving. -F/U final urine and blood cultures -IV pain meds and antiemetics. -Urology will see as outpatient. 2. Psychiatric. Patient has history of dementia, schizoaffective disorder, bipolar disorder. She appears to have severe memory loss. Continue Risperdal and Zoloft. 3. History of constipation. Continue Colace and MiraLAX as needed. 4. DVT prophylaxis: Subcu heparin. 5. CODE STATUS: Patient will remain full code for now. 6. Presumed hypertension, given her blood pressure meds. Holding for now due to hypotension at presentation. 7. Acute renal failure/LISA at presentation, improved. Monitor 8. GI. Mildly elevated LFTs. This appears chronic. Medical - PN: Qual - VTE Deep Vein Thrombosis/Pulmonary Embolism Present on Admission: No
[2016-12-11 06:02] LABS: Basophils # (Auto) 0 K/mcL (0.0-0.3); Basophils % (Auto) 0 % (0.0-2.0); Eosinophils # (Auto) 0.1 K/mcL (0.0-0.7); Eosinophils % (Auto) 1.2 % (0.0-7.0); Granulocytes % (Auto) 87.2 % (38.0-78.0); Lymphocytes # (Auto) 0.7 K/mcL (1.5-4.8); Lymphocytes % (Auto) 7.2 % (15.5-49.0); Mean Cell Volume 85.8 fL (80.0-100.0); Mean Corpuscular HGB Conc 34.1 g/dL (31.0-36.0); Mean Corpuscular Hemoglobin 29.3 pg (26.0-34.0); Monocytes # (Auto) 0.4 K/mcL (0.1-0.9); Monocytes % (Auto) 4.4 % (1.0-12.0); Platelet Count 144 K/mcL (140-440); Red Cell Distribution Width 15.3 % (11.5-14.5)
[2016-12-11] MEDS: 0.9 % SODIUM CHLORIDE 10 ML SYRINGE IV SCH ×3 (06:02→22:50)
[2016-12-11 06:34] LABS: ALT/SGPT 22 U/l (0-40); Albumin 2.5 gm/dL (3.2-5.2); Albumin/Globulin Ratio 0.7 (1.0-2.3); Alkaline Phosphatase 116 U/L (39-117); Bilirubin,Direct < 0.2 mg/dL (0.0-0.3); Blood Urea Nitrogen 14 mg/dl (8-23); Gamma Glutamyl Transpeptidase 86 U/L (5-36); Magnesium 1.8 mg/dL (1.6-2.5); Uric Acid 3.1 mg/dL (2.5-8.0)
[2016-12-11] MEDS: risperiDONE 1 MG TABLET PO SCH ×4 (07:17→22:50)
[2016-12-11] MEDS: POLYETHYLENE GLYCOL 3350 17 GM PACKET PO SCH (08:09)
[2016-12-11] MEDS: cefTRIAXone 1 GM in DEXTROSE 5% IN WATER 50 ML IV SCH (08:09)
[2016-12-11] MEDS: SERTRALINE 50 MG TABLET PO SCH (08:10)
[2016-12-11] MEDS: HEPARIN 5,000 UNIT/ML VIAL SQ SCH ×2 (08:10→22:50)
[2016-12-11] MEDS: DOCUSATE SODIUM 100 MG CAPSULE PO SCH (08:10)
[2016-12-11] MEDS: Fluticasone Propionate [Flovent Diskus] 50 MCG INH SCH (08:11)
--- NOTE | 2016-12-11 11:08 | Internal Med Progress Note ---
Medical - PN: Subj Patient information: Note initiated : 12/11/16 at 11:06 am Service Date, if different from initiated Date: [] Patient: Nicole Hillman 71 y/o F admitted on 12/09/16 for weakness. Chief Complaint: f/u sepsis, renal stone, complicated UTI Interval history: December 08, 2016: History of present illness: Ms. Hillman is a 71 year old female who lives at the [facility]. She was sent over today . for fever, weakness, decreased oral intake. ER evaluation found her to be hypotensive, tachycardic, febrile with leukocytosis and acute kidney injury. The patient has dementia, and unfortunately is not accompanied by anyone. When I entered her room this evening, she was walking with a walker to and from the bathroom. She has a slow shuffling gait, but seemed to have reasonable strength. She is an unreliable historian. She is not quite sure where she is or why she was sent here. She does deny fever chills, headaches or dizziness, chest pain or shortness of breath, GI or symptoms, but it appears she is unreliable. December 09: This morning, the patient says she feels okay. She has no specific complaints. She denies flank pain or dysuria, chest pain or palpitations, shortness of breath, nausea or vomiting or diarrhea. Her son arrives today, and says he will be around all day to authorize and review test. Dr. Garsia did take her for cystoscopy later this morning, and stented around the UPJ stone. December 10: Patient awake, complaining of some left-sided back pain. Lunch tray is still at bedside, uneaten, she is unsure if she has an appetite or not. Denies any abdominal pain. December 11: Patient sitting up in chair. Appetite is poor, complaining of left-sided abdominal/flank/back pain growing Escherichia coli, pansensitive, in both urine and blood. - Constitutional Vitals: Vital Signs Temp Pulse Resp BP Pulse Ox 97.7 F 80 16 152/79 96 12/11/16 10:53 12/11/16 03:41 12/11/16 10:53 12/11/16 10:53 12/11/16 10:53 Period Temp Pulse Resp BP Sys/Fisher Pulse Ox Last 24 Hr 97.3 F-100.6 F 80-92 16-18 112-152/69-79 93-97 Intake and Output 12/10/16 12/11/16 12/11/16 21:59 05:59 13:59 Intake Total 150 / 150 Output Total 2 / 2 Balance 148 / 148 Weight 112 lb 112 lb Patient Weight 12/12/16 05:59 Weight 112 lb Intake & Output: Intake & Output 12/10/16 12/11/16 12/11/16 21:59 05:59 13:59 Intake Total 150 / 150 Output Total 2 / 2 Balance 148 / 148 Weight 112 lb 112 lb Intake: Oral 150 / 150 Output: # of times incontinent of urine 2 / 2 Other: Meal Dinner Percent of Meal Consumed 25% - Additional findings Additional findings: General: Sitting in chair, no acute distress Chest: Clear without rales Cardiovascular: Regular, no peripheral edema Abdomen: Soft, mild left lateral/flank tenderness, mild left CVA tenderness Neuro: Alert, oriented to self. Medical - PN: Obj Da - Labs CBC & Chem 7: 12/11/16 05:03 12/11/16 05:03 Labs: Abnormal Lab Results 12/11/16 12/11/16 12/10/16 05:03 05:03 05:23 WBC RBC 3.80 L 3.61 L Hgb 11.1 L 10.7 L Hct 32.6 L 31.2 L RDW 15.3 H 15.3 H Plt Count 116 L Gran % 87.2 H 91.3 H Lymph % (Auto) 7.2 L 4.8 L Gran # 8.2 H 10.0 H Lymph # (Auto) 0.7 L 0.5 L PT INR VBG Lactic Acid Carbon Dioxide Anion Gap POC BUN BUN Creatinine POC Creatinine Glucose POC Glucose Calcium Phosphorus 2.3 L GGT 86 H AST ALT Total Protein Albumin 2.5 L Albumin/Globulin Ratio 0.7 L Triglycerides 197 H Urine Protein Urine Occult Blood Ur Leukocyte Esterase Urine RBC Urine WBC Amorphous Crystals Urine Bacteria 12/10/16 12/09/16 12/09/16 05:23 09:20 04:26 WBC 14.6 H RBC 3.93 L Hgb 11.4 L Hct 33.8 L RDW 15.0 H Plt Count 113 L Gran % 94.0 H Lymph % (Auto) 3.5 L Gran # 13.7 H Lymph # (Auto) 0.5 L PT 17.8 H INR 1.4 H VBG Lactic Acid Carbon Dioxide 21 L Anion Gap POC BUN BUN Creatinine POC Creatinine Glucose POC Glucose Calcium 8.4 L Phosphorus 2.0 L GGT 62 H AST ALT Total Protein 5.7 L Albumin 2.5 L Albumin/Globulin Ratio 0.8 L Triglycerides 174 H Urine Protein Urine Occult Blood Ur Leukocyte Esterase Urine RBC Urine WBC Amorphous Crystals Urine Bacteria 12/09/16 12/08/16 12/08/16 04:26 21:56 21:34 WBC RBC Hgb Hct RDW Plt Count Gran % Lymph % (Auto) Gran # Lymph # (Auto) PT INR VBG Lactic Acid 2.6 H Carbon Dioxide Anion Gap POC BUN BUN 33 H Creatinine 1.4 H POC Creatinine Glucose POC Glucose Calcium 8.5 L Phosphorus 2.4 L GGT 64 H AST 50 H ALT 56 H Total Protein 5.8 L Albumin 2.8 L Albumin/Globulin Ratio 0.9 L Triglycerides Urine Protein 100 A Urine Occult Blood 0.2 A Ur Leukocyte Esterase 500 A Urine RBC 22 H Urine WBC 123 H Amorphous Crystals Mod A Urine Bacteria Many A 12/08/16 12/08/16 21:34 21:34 WBC 18.4 H RBC Hgb Hct RDW 15.3 H Plt Count 132 L Gran % 93.5 H Lymph % (Auto) 3.6 L Gran # 17.2 H Lymph # (Auto) 0.7 L PT INR VBG Lactic Acid Carbon Dioxide 21 L Anion Gap 17.0 H POC BUN 38 H BUN 40 H Creatinine 1.9 H POC Creatinine 2.1 H Glucose 145 H POC Glucose 141 H Calcium Phosphorus GGT AST 62 H ALT 63 H Total Protein Albumin 3.1 L Albumin/Globulin Ratio Triglycerides Urine Protein Urine Occult Blood Ur Leukocyte Esterase Urine RBC Urine WBC Amorphous Crystals Urine Bacteria Microbiology: Blood cultures (4/4 bottles) and urine culture growing Escherichia coli, pansensitive Meds: Medications Acetaminophen (Tylenol) 650 mg PO Q6HP PRN PRN Reason: PAIN/FEVER > 101 Last Admin: 12/10/16 20:48 Dose: 650 mg Docusate Sodium (Colace) 100 mg PO HSP PRN PRN Reason: Constipation Docusate Sodium (Colace) 100 mg PO DAILY [facility] Last Admin: 12/11/16 08:10 Dose: 100 mg Heparin Sodium (Porcine) (Heparin) 5,000 unit SQ Q12 [facility] Last Admin: 12/11/16 08:10 Dose: 5,000 unit Ceftriaxone Sodium 1 gm/ (Dextrose) 50 mls @ 100 mls/hr IV DAILY [facility] Last Admin: 12/11/16 08:09 Dose: 100 mls/hr Lorazepam (Ativan) 0.5 mg PO TIDP PRN PRN Reason: Anxiety Magnesium Hydroxide (Milk Of Magnesia) 30 ml PO DAILYP PRN PRN Reason: Constipation Morphine Sulfate (Morphine) 2 mg IV Q2HP PRN PRN Reason: Pain Naloxone HCl (Narcan) 0.1 mg IV Q2MIN PRN PRN Reason: Opiate Reversal Ondansetron HCl (Zofran) 4 mg IV Q6HP PRN PRN Reason: Nausea And Vomiting Fluticasone Propionate [Flovent Diskus] 50 Mcg 1 - 2 dose INH DAILY [facility] Last Admin: 12/11/16 08:11 Dose: Not Given Polyethylene Glycol (Miralax) 17 gm PO DAILY [facility] Last Admin: 12/11/16 08:09 Dose: 17 gm Risperidone (Risperdal) 3 mg PO HS [facility] Last Admin: 12/10/16 20:49 Dose: 3 mg Risperidone (Risperdal) 1 mg PO TIDCC [facility] Last Admin: 12/11/16 07:17 Dose: 1 mg Sertraline HCl (Zoloft) 150 mg PO DAILY [facility] Last Admin: 12/11/16 08:10 Dose: 150 mg Sodium Chloride (Saline Flush) 10 ml IV Q8 [facility] Last Admin: 12/11/16 06:02 Dose: 10 ml Medical - PN: A/P (1) Dementia Status: Chronic Current Visit: Yes (2) UTI (urinary tract infection) Status: Acute Current Visit: Yes (3) Sepsis associated hypotension Status: Resolved Current Visit: Yes (4) Schizoaffective disorder Status: Chronic Current Visit: Yes (5) Nephrolithiasis Status: Acute Current Visit: Yes - Narrative A/P Narrative: 1. Infectious disease/. Sepsis from complicated UTI, resolved. S/P stenting of left UPJ stone. Hypotension, fever, tachycardia and leukocytosis at presentation. Improved. -E. coli in urine and 4/4 blood cultures, fernando-sensitive. -Saline lock. -Continue ceftriaxone. -IV pain meds and antiemetics. -Urology will see as outpatient. -Continue with IV antibiotics for the next 2448 hours to assure remain stable and afebrile. Will need continued oral antibiotics for 2 weeks due to bacteremia, though likely will need coverage until lithotripsy. 2. Psychiatric. Patient has history of dementia, schizoaffective disorder, bipolar disorder. She appears to have severe memory loss. Continue Risperdal and Zoloft. 3. History of constipation. Continue Colace and MiraLAX as needed. 4. DVT prophylaxis: Subcu heparin. 5. CODE STATUS: Patient will remain full code for now. 6. Presumed hypertension, given her blood pressure meds. Holding for now due to hypotension at presentation. 7. Acute renal failure/LISA at presentation, resolved. Monitor 8. GI. Mildly elevated LFTs. Appears chronic, though now normalized. Medical - PN: Qual - VTE Deep Vein Thrombosis/Pulmonary Embolism Present on Admission: No
[2016-12-12] MEDS: ACETAMINOPHEN 325 MG TABLET PO PRN ×2 (03:44→12:02)
[2016-12-12] MEDS: 0.9 % SODIUM CHLORIDE 10 ML SYRINGE IV SCH ×3 (03:45→14:11)
[2016-12-12 05:34] LABS: Basophils # (Auto) 0 K/mcL (0.0-0.3); Basophils % (Auto) 0.2 % (0.0-2.0); Eosinophils # (Auto) 0.1 K/mcL (0.0-0.7); Eosinophils % (Auto) 1.9 % (0.0-7.0); Granulocytes % (Auto) 79.1 % (38.0-78.0); Lymphocytes # (Auto) 0.9 K/mcL (1.5-4.8); Lymphocytes % (Auto) 12.5 % (15.5-49.0); Mean Cell Volume 85.3 fL (80.0-100.0); Mean Corpuscular HGB Conc 33.8 g/dL (31.0-36.0); Mean Corpuscular Hemoglobin 28.8 pg (26.0-34.0); Monocytes # (Auto) 0.5 K/mcL (0.1-0.9); Monocytes % (Auto) 6.3 % (1.0-12.0); Platelet Count 179 K/mcL (140-440); RBC 3.75 M/mcL (4.00-5.20); Red Cell Distribution Width 15.4 % (11.5-14.5)
[2016-12-12 06:07] LABS: ALT/SGPT 23 U/l (0-40); Albumin 2.7 gm/dL (3.2-5.2); Albumin/Globulin Ratio 0.8 (1.0-2.3); Alkaline Phosphatase 137 U/L (39-117); Bilirubin,Direct < 0.2 mg/dL (0.0-0.3); Blood Urea Nitrogen 15 mg/dl (8-23); Gamma Glutamyl Transpeptidase 133 U/L (5-36); Magnesium 1.9 mg/dL (1.6-2.5); Uric Acid 3.1 mg/dL (2.5-8.0)
[2016-12-12] MEDS: risperiDONE 1 MG TABLET PO SCH ×2 (07:40→12:04)
[2016-12-12] MEDS: POLYETHYLENE GLYCOL 3350 17 GM PACKET PO SCH (09:27)
[2016-12-12] MEDS: SERTRALINE 50 MG TABLET PO SCH (09:27)
[2016-12-12] MEDS: cefTRIAXone 1 GM in DEXTROSE 5% IN WATER 50 ML IV SCH (09:27)
[2016-12-12] MEDS: DOCUSATE SODIUM 100 MG CAPSULE PO SCH (09:27)
[2016-12-12] MEDS: Fluticasone Propionate [Flovent Diskus] 50 MCG INH SCH (09:28)
[2016-12-12] MEDS: HEPARIN 5,000 UNIT/ML VIAL SQ SCH (09:28)
[2016-12-12] MEDS ORDERED: 0.9 % SODIUM CHLORIDE 10 ML SYRINGE IV SCH (14:00)
--- NOTE | 2016-12-12 15:16 | Discharge Summary ---
Medical - DS: Prov Patient information: Note initiated : 12/12/16 at 3:10 pm Service Date, if different from initiated Date: [] Patient: Nicole Hillman 71 y/o F admitted on 12/09/16 for Weakness/Kidney Stone on Left Side, UTI. Chief Complaint: [] Date of admission: 12/09/16 00:20 Discharge date: 12/12/16 Primary care physician: Elizabeth Riggins Admitting clinician: Valeria Melvin Consults: 12/08/16 Consult to Physician [CONS] Stat Comment: Consulting Provider: Jorden Garsia Reason For Exam: Physician to Consult 12/08/16 23:37 Consult to Physician [CONS] Stat Comment: Consulting Provider: Valeria Melvin Reason For Exam: Physician to Consult 12/09/16 02:08 Consult to Physician [CONS] Routine Comment: Consulting Provider: Jorden Garsia Reason For Exam: Physician to Consult Discharging clinician: Renu Herring Medical - DS: Meds - Discharge Medications Prescriptions: cefTRIAXone [Rocephin] 1 gm IV DAILY #10 vial Active and Home Medications: Home Medications Docusate Sodium [Colace] 100 mg PO DAILY 10/18/16 [History Confirmed 12/09/16 Last Taken 10/18/16] Polyethylene Glycol 3350 [Miralax] 17 gm PO DAILY 10/18/16 [History Confirmed Last Taken 10/18/16 17 gm] Sertraline [Zoloft] 100 mg PO DAILY 10/18/16 [History Confirmed 12/09/16 Last Taken 10/18/16] risperiDONE [Risperdal M-Tab] 3 mg PO HS 10/18/16 [History Confirmed 12/09/16 Last Taken 10/17/16] risperiDONE [Risperidone] 1 mg PO TID 10/18/16 [History Confirmed 12/09/16 Last Taken 10/18/16] Fluticasone Propionate [Flovent Diskus] 1 - 2 spray IH DAILY 12/08/16 [History Confirmed 12/09/16 Last Taken Unknown] LORazepam [Ativan] 1 tab PO TIDP PRN 12/08/16 [History Confirmed 12/09/16 Last Taken Unknown] Lisinopril [Zestril] 5 mg PO DAILY 12/08/16 [History Confirmed 12/09/16 Last Taken Unknown] Acetaminophen [Tylenol] 1 - 2 tab PO Q6HP PRN 12/09/16 [History Confirmed Last Taken Unknown] Sertraline [Zoloft] 1 tab PO DAILY 12/09/16 [History Confirmed 12/09/16 Last Taken Unknown] Medical - DS: Hosp Hospital course: Mr. Hillman is a 71 year old F with a history of dementia and schizoaffective disorder, who presented to the emergency department with weakness and decreased appetite. ER evaluation found her to be hypotensive, tachycardic, febrile with leukocytosis and acute kidney injury. She was found to have urinary tract infection, CT scan of the abdomen revealed obstructing left UPJ stone as well. There is mild hydronephrosis. She is admitted, treated with antibiotics. Dr. Garsia saw her the following day , took her to the OR and performed cystoscopy with stenting of the left kidney. She tolerated that well. Blood and urine cultures eventually grew Escherichia coli which was pansensitive. She is continued on ceftriaxone. Her acute kidney injury resolved with stenting of the left kidney and fluids. She slowly improved over the next few days, her appetite returned. Her left flank and left lateral abdominal pain generally resolved by the time of discharge. Midline IV access was placed, she'll continue receiving ceftriaxone for a total of 2 weeks. She'll follow up with Dr. Garsia in the clinic for lithotripsy therapy for her stone. Discharge diagnosis: Sepsis from complicated urinary tract infection with E. coli bacteremia Secondary discharge diagnosis: Nephrolithiasis, obstructing left UPJ stone. Status post stenting Acute kidney injury, resolved, creatinine 1.9 at admission, 0.8 at discharge Dementia, stable Schizoaffective disorder, stable Reason for admission: Weakness, decreased oral intake. Pertinent studies/significant findings: 12/08/2016, CTAP IMPRESSION: 1. Solitary seven mm stone in the UPJ region of the proximal left ureter resulting in moderate left hydronephrosis. There are 4-5 small or nonobstructing stones in the inferior calyx of the left kidney 2. Mild hepatomegaly. Small amount of ascites is noted in the perihepatic and deep true pelvic region. Please correlate with LFTs and total protein etc. 3. Cholelithiasis. Gallbladder bile is otherwise normal 4. Small bilateral pleural effusions 12/09/2016 PROCEDURE: Cystoscopy, stent placement. SURGEON: Jorden Garsia M.D. - Time Spent with Patient Total time spent providing and/or coordinating discharge services: Greater than 30 minutes Medical - DS: Exam - Constitutional Vitals: Vital Signs Temp Pulse Resp BP BP Pulse Ox 12/12/16 11:20 98.8 F 85 14 156/79 97 12/12/16 07:22 14 12/12/16 07:15 98.7 F 76 14 137/78 97 12/12/16 03:27 98.5 F 82 18 126/73 96 12/11/16 23:03 99.2 F H 76 19 126/72 97 12/11/16 19:18 98 F 84 18 115/70 99 12/11/16 15:24 98.8 F 18 148/81 95 Intake and Output 12/12/16 12/12/16 12/12/16 05:59 13:59 21:59 Intake Total 100 / 100 350 / 350 Output Total 275 / 275 Balance 99 / 99 75 / 75 Intake: IV 50 / 50 Rocephin 1 gm In Dextrose 5% in 50 / 50 Water 50 ml @ 100 mls/hr IV DAILY [facility] Rx#:[id number] Oral 100 / 100 300 / 300 Output: Void Amount 275 / 275 # of times incontinent of urine Other: Meal Lunch Percent of Meal Consumed 75% Feeding Ability Assist with Tray Set Up # Voids 1 # Bowel Movements 1 1 # of times incontinent of 1 Bowels - Other Additional findings: General: Laying in bed, no particular complaints Chest: Clear, unlabored respirations Cardiovascular: Regular Abdomen: Soft, no left lateral or flank tenderness Neuro: Alert, oriented to self Medical - DS: Data Procedures and tests throughout hospitalization: Cystoscopy with stent placement in left kidney, as above. Labs on day of discharge: Labs from last 24 hours 12/12/16 12/12/16 04:32 04:32 WBC 7.6 RBC 3.75 L Hgb 10.8 L Hct 32.0 L MCV 85.3 MCH 28.8 MCHC 33.8 RDW 15.4 H Plt Count 179 MPV 7.9 Gran % 79.1 H Lymph % (Auto) 12.5 L [place] % (Auto) 6.3 Eos % (Auto) 1.9 Baso % (Auto) 0.2 Gran # 6.0 Lymph # (Auto) 0.9 L [place] # (Auto) 0.5 Eos # (Auto) 0.1 Baso # (Auto) 0 Sodium 141 Potassium 3.6 Chloride 103 Carbon Dioxide 24 Anion Gap 14.0 BUN 15 Creatinine 0.8 GFR Calculation 74 Glucose 108 H Uric Acid 3.1 Calcium 8.6 Phosphorus 2.1 L Magnesium 1.9 Total Bilirubin 0.3 Direct Bilirubin < 0.2 GGT 133 H AST 16 ALT 23 Alkaline Phosphatase 137 H Lactate Dehydrogenase 167 Total Protein 5.9 Albumin 2.7 L Globulin 3.2 Albumin/Globulin Ratio 0.8 L Triglycerides 166 H Medical - DS: A/P - Patient/Caregiver Discharge Instructions Activity: increase activity as tolerated Diet: Regular Diet Additional Instructions: Follow up with Dr. Garsia in 7-10 days Return daily for IV antibiotics through 12/22/2016 - Problem Maintenance (1) Dementia Status: Chronic Qualifiers: Dementia type: unspecified type Dementia behavioral disturbance: with behavioral disturbance Qualified Code(s): F03.91 - Unspecified dementia with behavioral disturbance (2) UTI (urinary tract infection) Status: Resolved Qualifiers: Urinary tract infection type: acute cystitis Hematuria presence: with hematuria Qualified Code(s): N30.01 - Acute cystitis with hematuria (3) Sepsis associated hypotension Status: Resolved (4) Schizoaffective disorder Status: Chronic (5) Nephrolithiasis Status: Acute Comment: Stenting for left UPJ stone 12/09/2016 (6) Acute kidney injury Status: Resolved - Follow up Plan Follow up with: Elizabeth Riggins [Primary Care Provider] - (1 week) Jorden Garsia MD [Physician] - (7-10 days) Disposition: [facility] Prognosis: Fair Rehab Potential: Fair Overall status at discharge: patient is progressing back to baseline Medical - DS: Qual - VTE Deep Vein Thrombosis/Pulmonary Embolism Present on Admission: No
== END 2016-12-12 17:15 | DRG 854 ==
LOC: ED 21:17 → ICU 12-09 00:20 → MEDSUR 12-09 13:38
PROVIDERS: ADMIT Internal Medicine; ATTEND Internal Medicine